=== PATIENT | female | born 1980 | race African-American/Black ===

== ENCOUNTER 2020-07-28 14:51 | Outpatient (REF) | payer OTHER, SELFPAY ==
[2020-07-29 09:46] LABS: CT PCR NOT DETECTED (Not Detect.); NG PCR NOT DETECTED (Not Detect.)
[2020-07-29 13:51] LABS: BV Int Neg Control Negative (Negative); BV Int Pos Control Positive (Positive)
== END 2020-07-28 14:52 | disposition home or self-care (01) ==
LOC: HO.LAB 14:51
PROVIDERS: Visit Provider Advanced Practice Midwife
DX: N93.9 Abnormal uterine and vaginal bleeding, unspecified (principal); R10.2 Pelvic and perineal pain; Z31.9 Encounter for procreative management, unspecified
CPT/HCPCS: 87480; 87491; 87510; 87591; 87660; 99212

== ENCOUNTER 2020-07-30 15:02 | Outpatient (REF) | payer OTHER, SELFPAY ==
--- NOTE | 2020-07-30 15:10 | US_ITS ---
EXAMINATION: PELVIC ULTRASOUND CLINICAL INFORMATION: Abnormal uterine bleeding COMPARISON: Previous pelvic ultrasound September [address] of the abdomen and pelvis May 2019 TECHNIQUE: Transabdominal and transvaginal pelvic ultrasound was performed. Transvaginal exam was performed for better visualization of the uterus and ovaries. FINDINGS: The uterus is anteverted and measures 7.4 x 3.1 x 5.2 cm in dimension. No focal uterine lesion is seen. Endometrial thickness is normal estimated at 0.4 cm. The cervix is normal. The ovaries are normal. The right ovary measures 3.8 x 3.1 x 2.6 cm and the left ovary measures 3 x 2.6 x 2.4 cm. There is no fluid in the pelvis. US/US pelvic complete IMPRESSION: Unremarkable exam.
--- NOTE | 2020-07-30 15:10 | US_ITS ---
EXAMINATION: PELVIC ULTRASOUND CLINICAL INFORMATION: Abnormal uterine bleeding COMPARISON: Previous pelvic ultrasound September [address] of the abdomen and pelvis May 2019 TECHNIQUE: Transabdominal and transvaginal pelvic ultrasound was performed. Transvaginal exam was performed for better visualization of the uterus and ovaries. FINDINGS: The uterus is anteverted and measures 7.4 x 3.1 x 5.2 cm in dimension. No focal uterine lesion is seen. Endometrial thickness is normal estimated at 0.4 cm. The cervix is normal. The ovaries are normal. The right ovary measures 3.8 x 3.1 x 2.6 cm and the left ovary measures 3 x 2.6 x 2.4 cm. There is no fluid in the pelvis. US/US transvaginal IMPRESSION: Unremarkable exam.
[2020-07-30 16:54] LABS: Hematocrit 39.8 % (37-47); Hemoglobin 12.9 g/dl (12.0-16.0); Mean Corpuscular HGB Conc 32.4 g/dl (31.0-35.0); Mean Corpuscular Hemoglobin 30.1 pg (27.0-33.0); Mean Corpuscular Volume 92.8 fL (80-98); Mean Platelet Volume 10.9 fL (9.4-12.3); Platelet Count 239 X10*3/uL (160-400); Red Blood Count 4.29 X10*6/uL (4.20-5.50); Red Cell Distribution Width 12.9 % (11.0-16.0); White Blood Count 4.6 X10*3/uL (4.8-10.8)
[2020-07-30 17:32] LABS: Syphilis Screen Nonreactive (Nonreactive)
[2020-07-31 05:06] LABS: HIV AB/AG Nonreactive (Nonreactive); HIV Num 1 0.13 S/CO (0.00-0.99); ~HepC Num1 0.15 S/CO (0.00-0.79); ~Hepatitis C Antibody Nonreactive (Nonreactive)
[2020-07-31 05:11] LABS: HBsAGNum1 0.34 S/CO (0.00-0.99); Hepatitis B Surface Antigen Negative (Negative)
== END 2020-07-30 15:03 | disposition home or self-care (01) ==
LOC: HO.US 15:02
PROVIDERS: PCP Family Medicine; Visit Provider Advanced Practice Midwife
DX: N93.9 Abnormal uterine and vaginal bleeding, unspecified (principal); R10.2 Pelvic and perineal pain; Z20.2 Contact with and (suspected) exposure to infections with a predominantly sexual mode of transmission
CPT/HCPCS: 36415; 76830; 76856; 85027; 86780; 86803; 87340; 87389

== ENCOUNTER → 2020-08-25 11:30 | Outpatient (BNVA) | payer OTHER, SELFPAY | PROVIDERS: PCP Family Medicine; Referring Provider Family Medicine; Visit Provider Advanced Practice Midwife | DX: Z76.89 Persons encountering health services in other specified circumstances (principal) ==

== ENCOUNTER 2020-09-04 13:52 | Outpatient (REF) | payer OTHER, SELFPAY | END 2020-09-04 13:53 | disposition home or self-care (01) | LOC: HO.LAB 13:52 | PROVIDERS: Visit Provider Hospitalist | DX: Z20.828 Contact with and (suspected) exposure to other viral communicable diseases (principal) | CPT/HCPCS: U0003 ==

== ENCOUNTER 2020-11-17 15:52 | Outpatient (REF) | payer OTHER, SELFPAY | END 2020-11-17 15:53 | disposition home or self-care (01) | LOC: HO.LAB 15:52 | PROVIDERS: Visit Provider Obstetrics & Gynecology | DX: N85.01 Benign endometrial hyperplasia (principal); N85.02 Endometrial intraepithelial neoplasia [EIN] | CPT/HCPCS: 88305 ==

== ENCOUNTER → 2020-11-25 13:40 | Outpatient (BNVA) | payer OTHER, SELFPAY | PROVIDERS: PCP Family Medicine; Visit Provider Obstetrics & Gynecology | DX: N85.02 Endometrial intraepithelial neoplasia [EIN] (principal) | CPT/HCPCS: 99212 ==

== ENCOUNTER 2020-12-08 10:05 | Outpatient (REF) | payer OTHER, SELFPAY ==
[2020-12-08 11:00] LABS: MANUAL DIFF FLAG NO
[2020-12-08 11:13] LABS: Basophils Percent Auto 0.4 % (0-2); Eosinophils Absolute Auto 0.1 X10*3/uL (0.0-0.4); Eosinophils Percent Auto 0.9 % (0-4); Hematocrit 40.6 % (37-47); Hemoglobin 12.9 g/dl (12.0-16.0); Imm Gran Abs Auto 0.01 X10*3/uL (0.00-0.03); Imm Gran Pct Auto 0.2 % (0.0-0.4); Lymphocytes Absolute Auto 2.3 X10*3/uL (1.2-4.9); Lymphocytes Percent Auto 41.2 % (20-40); Mean Corpuscular HGB Conc 31.8 g/dl (31.0-35.0); Mean Corpuscular Hemoglobin 29.8 pg (27.0-33.0); Mean Corpuscular Volume 93.8 fL (80-98); Mean Platelet Volume 10.7 fL (9.4-12.3); Monocytes Absolute Auto 0.4 X10*3/uL (0.1-1.2); Monocytes Percent Auto 6.4 % (2-11); Neutrophils Absolute Auto 2.8 X10*3/uL (2.0-8.3); Neutrophils Percent Auto 50.9 % (45-73); Platelet Count 259 X10*3/uL (160-400); Red Blood Count 4.33 X10*6/uL (4.20-5.50); Red Cell Distribution Width 13.5 % (11.0-16.0); White Blood Count 5.5 X10*3/uL (4.8-10.8)
[2020-12-08 12:07] LABS: Alanine Aminotransferase 18 U/L (0-31); Albumin Level 4.4 g/dL (3.5-5.0); Alkaline Phosphatase 79 U/L (39-117); Anion Gap 15 (12-20); Aspartate Amino Transferase 20 U/L (5-31); Bilirubin Total 0.8 mg/dL (0.0-1.0); Blood Urea Nitrogen 9 mg/dL (9-16); Calcium 8.9 mg/dL (8.4-10.2); Carbon Dioxide 21 mmol/L (22-29); Chloride 107 mmol/L (96-108); Estimated Glomerular Filt Rate > 60; Glucose Fasting 98 mg/dL (60-99); Iron 85 mcg/dL (30-160); Percent Iron Saturation 29 % (15-50); Potassium 4.3 mmol/L (3.3-5.1); Sodium 139 mmol/L (135-145); TSH reflex Free T4 1.38 uIU/mL (0.32-4.0); Total Iron Binding Capacity 296 mcg/dL (228-428); Total Protein 7.2 g/dL (6.5-8.0); Unsaturated Iron Binding 211 ug/dL
== END 2020-12-08 10:06 | disposition home or self-care (01) ==
LOC: HO.WFDLDS 10:05
PROVIDERS: Visit Provider Family Medicine
DX: Z00.00 Encounter for general adult medical examination without abnormal findings (principal); R53.83 Other fatigue
CPT/HCPCS: 36415; 80053; 83540; 84443; 85025

== ENCOUNTER 2021-08-10 13:46 | Outpatient (REF) | payer OTHER, SELFPAY | END 2021-08-10 13:47 | disposition home or self-care (01) | LOC: HO.LAB 13:46 | PROVIDERS: Visit Provider Family Medicine | DX: Z13.89 Encounter for screening for other disorder (principal) ==

== ENCOUNTER 2021-08-11 16:44 | Outpatient (REF) | payer OTHER, SELFPAY ==
--- NOTE | ~2021-08-11 | MM_ITS ---
EXAMINATION: MM SCREENING DIGITAL BREAST TOMOSYNTHESIS, BILATERAL CLINICAL INFORMATION: Screening. Asymptomatic. The lifetime risk of breast cancer based on the Tyrer-Cuzick Model is 18.8%. COMPARISON: Mammography: September 07, 2019 TECHNIQUE: Digital breast tomosynthesis is performed in both the craniocaudal and mediolateral oblique views along with computer-aided detection (CAD). Synthesized 2D images are generated from the tomosynthesis. FINDINGS: There are scattered areas of fibroglandular density (ACR BI-RADS breast composition Category b). There are no significant masses, abnormal calcifications, or other abnormalities. Stable asymmetric density is seen on mediolateral oblique projection right breast inferiorly. MM/MM tomosynthesis screening BI IMPRESSION: There are no significant changes from prior study. ASSESSMENT: BI-RADS 1: Negative RECOMMENDATION: Routine annual mammography screening. This patient's information was entered into a reminder system with a target due date for their next mammogram.
== END 2021-08-11 16:45 | disposition home or self-care (01) ==
LOC: HO.MAMMO 16:44
PROVIDERS: PCP Family Medicine; Visit Provider Family Medicine
DX: Z12.31 Encounter for screening mammogram for malignant neoplasm of breast (principal)
CPT/HCPCS: 77063; 77067

== ENCOUNTER 2021-11-19 15:00 | Outpatient (REF) | payer OTHER, SELFPAY | END 2021-11-19 15:01 | disposition home or self-care (01) | LOC: HO.LNP 15:00 | PROVIDERS: Visit Provider Family Medicine | DX: Z13.89 Encounter for screening for other disorder (principal) ==

== ENCOUNTER 2021-11-20 11:26 | Outpatient (REF) | payer OTHER, SELFPAY ==
[2021-11-20 12:02] LABS: Appearance Urine TURBID; Color Urine YELLOW; Glucose Urine UA NEG (NEG); Leukocyte Esterase Urine NEG (NEG); Nitrite Urine NEG (NEG); PH 5.5 (5.0-8.0); Specific Gravity - Urine >= 1.030 (1.005-1.025); Urine Blood NEG (NEG); Urine Ketones NEG (NEG); Urine Protein NEG (NEG-TRACE)
== END 2021-11-20 11:27 | disposition home or self-care (01) ==
LOC: HO.LNP 11:26
PROVIDERS: Visit Provider Family Medicine
DX: Z00.00 Encounter for general adult medical examination without abnormal findings (principal)
CPT/HCPCS: 81003

== ENCOUNTER 2021-11-30 12:24 | Outpatient (REF) | payer OTHER, SELFPAY ==
[2021-11-30 13:53] LABS: MANUAL DIFF FLAG NO
[2021-11-30 14:02] LABS: Basophils Percent Auto 0.2 % (0-2); Eosinophils Percent Auto 0.6 % (0-4); Hematocrit 41.8 % (37.0-47.0); Hemoglobin 13.8 g/dl (12.0-16.0); Imm Gran Abs Auto 0.03 X10*3/uL (0.00-0.03); Imm Gran Pct Auto 0.6 % (0.0-0.4); Lymphocytes Absolute Auto 0.7 X10*3/uL (1.2-4.9); Lymphocytes Percent Auto 13.7 % (20-40); Mean Corpuscular Hemoglobin 30.2 pg (27.0-33.0); Mean Corpuscular Volume 91.5 fL (80.0-98.0); Mean Platelet Volume 10.8 fL (9.4-12.3); Monocytes Absolute Auto 0.3 X10*3/uL (0.1-1.2); Neutrophils Percent Auto 78.9 % (45-73); Platelet Count 238 X10*3/uL (160-400); Red Blood Count 4.57 X10*6/uL (4.20-5.50); Red Cell Distribution Width 13.4 % (11.0-16.0)
[2021-11-30 14:06] LABS: Appearance Urine CLEAR; Color Urine YELLOW; Glucose Urine UA NEG (NEG); Leukocyte Esterase Urine NEG (NEG); Nitrite Urine NEG (NEG); Specific Gravity - Urine >= 1.030 (1.005-1.025); Urine Blood NEG (NEG); Urine Ketones NEG (NEG); Urine Protein NEG (NEG-TRACE)
[2021-11-30 14:11] LABS: Anion Gap 13 (12-20); Blood Urea Nitrogen 9 mg/dL (9-16); Calcium 9.2 mg/dL (8.4-10.2); Carbon Dioxide 20 mmol/L (22-29); Chloride 107 mmol/L (96-108); Estimated Glomerular Filt Rate > 60; Glucose Random 109 mg/dL (60-115); Potassium 3.8 mmol/L (3.3-5.1); Sodium 136 mmol/L (135-145)
[2021-11-30 14:41] LABS: Syphilis Screen Nonreactive (Nonreactive)
[2021-12-02 07:57] LABS: HBsAGNum1 0.15 S/CO (0.00-0.99); HIV AB/AG Nonreactive (Nonreactive); HIV Num 1 0.05 S/CO (0.00-0.99); Hepatitis B Surface Antigen Negative (Negative)
[2021-12-02 08:42] LABS: HBc Num1 8.82 S/CO (0.00-0.79); ~Hepatitis B Surface Antibody REACTIVE (Nonreactive)
[2021-12-02 10:41] LABS: HBc Num2 9.07 S/CO; HBc Num3 8.69 S/CO; Hepatitis B Core Antibody Reactive (Nonreactive)
[2021-12-03 09:40] LABS: ~HepC Num1 0.16 S/CO (0.00-0.79); ~Hepatitis C Antibody Nonreactive (Nonreactive)
== END 2021-11-30 12:25 | disposition home or self-care (01) ==
LOC: HO.WFDLDS 12:24
PROVIDERS: Visit Provider Family Medicine
DX: Z00.00 Encounter for general adult medical examination without abnormal findings (principal); M25.471 Effusion, right ankle; M25.472 Effusion, left ankle; R60.0 Localized edema; Z11.3 Encounter for screening for infections with a predominantly sexual mode of transmission
CPT/HCPCS: 36415; 80048; 81003; 85025; 86704; 86706; 86780; 86803; 87340; 87389

== ENCOUNTER 2022-02-09 16:04 | Outpatient (REF) | payer OTHER, SELFPAY ==
--- NOTE | ~2022-02-09 | XR_ITS ---
EXAMINATION: LEFT SHOULDER RADIOGRAPH LEFT ELBOW RADIOGRAPH CLINICAL INFORMATION: Pain. COMPARISON: No similar priors. TECHNIQUE: 4 views of the left shoulder. 3 views of the left elbow. FINDINGS: Left shoulder: No acute fractures or malalignment. No significant degenerative osteoarthritis. Normal appearance of the soft tissues. Imaged segments of the left lung are within normal limits. Left elbow: No acute fracture or malalignment. Normal soft tissues. No joint effusion. XR/XR elbow LT 2V IMPRESSION: Normal radiographic examination of the left shoulder and left elbow.
--- NOTE | ~2022-02-09 | XR_ITS ---
EXAMINATION: LEFT SHOULDER RADIOGRAPH LEFT ELBOW RADIOGRAPH CLINICAL INFORMATION: Pain. COMPARISON: No similar priors. TECHNIQUE: 4 views of the left shoulder. 3 views of the left elbow. FINDINGS: Left shoulder: No acute fractures or malalignment. No significant degenerative osteoarthritis. Normal appearance of the soft tissues. Imaged segments of the left lung are within normal limits. Left elbow: No acute fracture or malalignment. Normal soft tissues. No joint effusion. XR/XR shoulder LT min 2V IMPRESSION: Normal radiographic examination of the left shoulder and left elbow.
== END 2022-02-09 16:05 | disposition home or self-care (01) ==
LOC: HO.XRAY 16:04
PROVIDERS: PCP Family Medicine; Visit Provider Family Medicine
DX: M25.512 Pain in left shoulder (principal); M25.522 Pain in left elbow
CPT/HCPCS: 73030; 73070

== ENCOUNTER 2022-03-30 22:15 | Emergency (ER) | payer OTHER, SELFPAY ==
[2022-03-30 22:19] VITALS: BP 146/97; PULSE 111; RESP 18; TEMP 37.8; O2SAT 99; BMI 34.9
[2022-03-30 22:43] LABS: MANUAL DIFF FLAG NO
[2022-03-30 22:44] LABS: Basophils Percent Auto 0.3 % (0-2); Eosinophils Absolute Auto 0.1 X10*3/uL (0.0-0.4); Eosinophils Percent Auto 0.8 % (0-4); Hematocrit 40.4 % (37.0-47.0); Hemoglobin 13.3 g/dl (12.0-16.0); Imm Gran Abs Auto 0.02 X10*3/uL (0.00-0.03); Imm Gran Pct Auto 0.3 % (0.0-0.4); Lymphocytes Absolute Auto 0.4 X10*3/uL (1.2-4.9); Lymphocytes Percent Auto 6.4 % (20-40); Mean Corpuscular HGB Conc 32.9 g/dl (31.0-35.0); Mean Corpuscular Hemoglobin 30.3 pg (27.0-33.0); Mean Platelet Volume 10.1 fL (9.4-12.3); Monocytes Absolute Auto 0.5 X10*3/uL (0.1-1.2); Monocytes Percent Auto 7.3 % (2-11); Neutrophils Absolute Auto 5.2 x10*3/uL (2.0-8.3); Neutrophils Percent Auto 84.9 % (45-73); Platelet Count 228 X10*3/uL (160-400); Red Blood Count 4.39 X10*6/uL (4.20-5.50); Red Cell Distribution Width 13.3 % (11.0-16.0); White Blood Count 6.1 X10*3/uL (4.8-10.8)
[2022-03-30 22:54] LABS: COVID-19 Test Positive (Negative); IDNOW Serial# 55D5AD1C
[2022-03-30 22:59] LABS: Alanine Aminotransferase 23 U/L (0-31); Albumin Level 4.3 g/dL (3.5-5.0); Alkaline Phosphatase 92 U/L (39-117); Anion Gap 10 (12-20); Aspartate Amino Transferase 23 U/L (5-31); Bilirubin Total 0.6 mg/dL (0.0-1.0); Blood Urea Nitrogen 10 mg/dL (9-16); Calcium 8.7 mg/dL (8.4-10.2); Carbon Dioxide 23 mmol/L (22-29); Chloride 109 mmol/L (96-108); Creatinine Clr Calc Pharmacy 81.8; Estimated Glomerular Filt Rate > 60; Glucose Random 104 mg/dL (60-115); Potassium 4.4 mmol/L (3.3-5.1); Sodium 138 mmol/L (135-145); Total Protein 7.3 g/dL (6.5-8.0)
== END 2022-03-31 03:33 | disposition left against medical advice (07) ==
LOC: HO.ED 03-31 03:33
PROVIDERS: Emergency Provider Emergency Medicine; PCP Family Medicine
DX: R50.9 Fever, unspecified (principal); M79.10 Myalgia, unspecified site; R11.10 Vomiting, unspecified; Z20.822 Contact with and (suspected) exposure to COVID-19; Z79.899 Other long term (current) drug therapy
CPT/HCPCS: 36415; 80053; 85025; 87635; 99281; 99283

== ENCOUNTER 2022-05-04 11:11 | Outpatient (REF) | payer OTHER, SELFPAY ==
[2022-05-04 13:00] LABS: HCG Quantitative < 2 mIU/mL; TSH reflex Free T4 1.82 uIU/mL (0.32-4.0)
[2022-05-04 15:08] LABS: CT PCR NOT DETECTED (Not Detect.); NG PCR NOT DETECTED (Not Detect.)
[2022-05-05 07:16] LABS: Syphilis Screen Nonreactive (Nonreactive)
[2022-05-05 07:41] LABS: HBc Num1 7.98 S/CO (0.00-0.79); HBsAGNum1 0.13 S/CO (0.00-0.99); HIV AB/AG Nonreactive (Nonreactive); HIV Num 1 0.06 S/CO (0.00-0.99); Hepatitis B Surface Antigen Negative (Negative); ~HepC Num1 0.15 S/CO (0.00-0.79); ~Hepatitis B Surface Antibody REACTIVE (Nonreactive); ~Hepatitis C Antibody Nonreactive (Nonreactive)
[2022-05-05 08:36] LABS: HBc Num2 7.43 S/CO; HBc Num3 7.38 S/CO; Hepatitis B Core Antibody Reactive (Nonreactive)
[2022-05-07 03:03] LABS: Hepatitis B Core Antibody IgM NON-REACTIVE (NON-REACTIVE)
[2022-05-08 10:16] LABS: HPV mRNA E6/E7 rflx Not Detected (Not Detected)
== END 2022-05-04 11:12 | disposition home or self-care (01) ==
LOC: HO.LAB 11:11
PROVIDERS: PCP Family Medicine; Visit Provider Obstetrics & Gynecology
DX: Z12.4 Encounter for screening for malignant neoplasm of cervix (principal); Z11.51 Encounter for screening for human papillomavirus (HPV); Z11.3 Encounter for screening for infections with a predominantly sexual mode of transmission; Z11.4 Encounter for screening for human immunodeficiency virus [HIV]; N85.02 Endometrial intraepithelial neoplasia [EIN]; N93.9 Abnormal uterine and vaginal bleeding, unspecified
CPT/HCPCS: 36415; 58100; 81025; 84443; 84702; 86704; 86705; 86706; 86780; 86803; 87340; 87389; 87491; 87591; 87624; 88142; 88305; 99212

== ENCOUNTER 2022-06-25 14:53 | Outpatient (REF) | payer OTHER, SELFPAY ==
--- NOTE | ~2022-06-25 | US_ITS ---
EXAMINATION: US PELVIS CLINICAL INFORMATION: Abnormal bleeding COMPARISON: Previous pelvic ultrasound most recent July 2020 TECHNIQUE: Ultrasound of the pelvis is performed using both transabdominal and transvaginal transducers along with Doppler. Transvaginal imaging is performed due to inadequate visualization transabdominally. FINDINGS: The uterus is anteverted and measures 7.4 x 3.6 x 5.3 cm in dimension. There is a small cyst in the left upper uterine body near the endometrium measuring 0.8 cm. No other focal uterine lesion is seen. Endometrial thickness is normal measuring 0.6 cm. There are nabothian cysts in the cervix. The ovaries are normal. The right ovary measures 3.8 x 2.7 x 3.1 cm. The left ovary measures 3.2 x 3.3 x 3 cm. There is no fluid in the pelvis. US/US pelvic and transvaginal IMPRESSION: Small 8 mm cyst in the left upper uterine body near the endometrium. Otherwise unremarkable exam.
== END 2022-06-25 14:54 | disposition home or self-care (01) ==
LOC: HO.HMGCX 14:53
PROVIDERS: PCP Family Medicine; Visit Provider Obstetrics & Gynecology
DX: N93.9 Abnormal uterine and vaginal bleeding, unspecified (principal)
CPT/HCPCS: 76830; 76856

== ENCOUNTER → 2022-06-29 15:37 | Outpatient (BNVA) | payer OTHER, SELFPAY | PROVIDERS: PCP Family Medicine; Visit Provider Obstetrics & Gynecology | DX: R93.89 Abnormal findings on diagnostic imaging of other specified body structures (principal) | CPT/HCPCS: 99212 ==

== ENCOUNTER 2022-07-29 01:15 | Emergency (ER) | payer OTHER, SELFPAY ==
[2022-07-29 01:23] VITALS: BP 149/99; PULSE 94; RESP 16; TEMP 36.6; O2SAT 98; BMI 34.9
[2022-07-29 01:50] LABS: Basophils Percent Auto 0.6 % (0-2); Eosinophils Absolute Auto 0.1 X10*3/uL (0.0-0.4); Eosinophils Percent Auto 1.3 % (0-4); Hematocrit 42.1 % (37.0-47.0); Hemoglobin 14.1 g/dl (12.0-16.0); Imm Gran Abs Auto 0.02 X10*3/uL (0.00-0.03); Imm Gran Pct Auto 0.4 % (0.0-0.4); Lymphocytes Percent Auto 37.3 % (20-40); MANUAL DIFF FLAG NO; Mean Corpuscular HGB Conc 33.5 g/dl (31.0-35.0); Mean Corpuscular Hemoglobin 30.4 pg (27.0-33.0); Mean Corpuscular Volume 90.7 fL (80.0-98.0); Mean Platelet Volume 10.3 fL (9.4-12.3); Monocytes Absolute Auto 0.3 X10*3/uL (0.1-1.2); Monocytes Percent Auto 5.7 % (2-11); Neutrophils Percent Auto 54.7 % (45-73); Platelet Count 285 X10*3/uL (160-400); Red Blood Count 4.64 X10*6/uL (4.20-5.50); White Blood Count 5.4 X10*3/uL (4.8-10.8)
[2022-07-29 02:16] LABS: Alanine Aminotransferase 22 U/L (0-31); Albumin Level 4.4 g/dL (3.5-5.0); Alkaline Phosphatase 111 U/L (39-117); Anion Gap 14 (12-20); Aspartate Amino Transferase 26 U/L (5-31); Bilirubin Total 0.5 mg/dL (0.0-1.0); Blood Urea Nitrogen 9 mg/dL (9-16); Calcium 9.1 mg/dL (8.4-10.2); Carbon Dioxide 21 mmol/L (22-29); Chloride 111 mmol/L (96-108); Creatinine Clr Calc Pharmacy 72.7; Estimated Glomerular Filt Rate > 60; Glucose Random 114 mg/dL (60-115); Potassium 4.2 mmol/L (3.3-5.1); Sodium 142 mmol/L (135-145); Total Protein 7.7 g/dL (6.5-8.0)
[2022-07-29 02:50] VITALS: BP 128/80; PULSE 64; RESP 24; TEMP 37.1
--- NOTE | 2022-07-29 03:36 | ED.FEMALEGU ---
HPI - Female Genitourinary General Chief complaint: Vaginal Bleeding Stated complaint: urogen female Time Seen by Provider: 07/29/22 02:37 Source: patient Mode of arrival: ambulatory History of Present Illness HPI Narrative: 42-year-old female presents with 3 weeks of intermittent vaginal bleeding that ranges between red, round, ?black? and she reports using 4-6 pad/temp onset throughout a day and has had associated lower back pain without urinary symptoms denies any fever, chills, dizziness, shortness of breath, heart palpitations. Patient is followed by Dr. Stock and she states he has recommended a D&C but she is somewhat concerned as she wishes to have children in the future. Related Data Home Medications Medication Instructions Recorded Confirmed albuterol sulfate 2.5 mg/3 mL mg inhalation 07/28/20 (0.083 %) solution for nebulization albuterol sulfate 90 mcg/actuation inhalation 07/28/20 aerosol inhaler levetiracetam 750 mg tablet 750 mg PO BID 07/28/20 Previous Rx's Medication Instructions Recorded ibuprofen 800 mg tablet 800 mg PO Q8H PRN pain 14 days #42 02/03/22 tabs amlodipine 10 mg tablet 10 mg PO DAILY 90 days #90 tabs 04/28/22 ketorolac 10 mg tablet 10 mg PO Q6H PRN pain 5 days #20 07/29/22 tabs Allergies Allergy/AdvReac Type Severity Reaction Status Date / Time Sulfa (Sulfonamide Allergy Intermediate HIVES Verified 07/29/22 01:28 Antibiotics) [SULFA (SULFONAMIDE ANTIBIOTICS)] sulfamethoxazole Allergy Intermediate HIVES, Verified 07/29/22 01:28 [From BACTRIM] FEVER trimethoprim [From BACTRIM] Allergy Intermediate HIVES, Verified 07/29/22 01:28 FEVER penicillin V Allergy Unknown Unknown Verified 07/29/22 01:28 lisinopril AdvReac cough Verified 07/29/22 01:28 Sulfamethoxazole Allergy Unknown Unknown Uncoded 02/03/22 16:38 Review of Systems Review of Systems: Pertinent positives and negatives as stated in HPI 10 point review of systems is otherwise negative. PMFSH Past Medical History Source: nursing notes reviewed Medical History Asthma Endometrial intraepithelial neoplasia (EIN) HTN (hypertension) Irritable bowel syndrome with constipation Seizure Vertigo Surgical History No history of previous surgery Social History Social History Housing: Apartment Alcohol intake: never Patient Tobacco Use Status: Never used Tobacco e-Cigarette/Vaping Use: Never Used Advance Directives: No service: No Current occupational status: disabled Current occupational exposures/hazards: No Gender identity: Female Cognitive needs: No Hearing needs: No Vision needs: No Physical Exam Vital Signs: Vital Signs: Last Vital Signs Temp 98.8 F 07/29/22 02:50 Pulse 64 07/29/22 02:50 Resp 24 H 07/29/22 02:50 BP 128/80 07/29/22 02:50 Pulse Ox 98 07/29/22 01:23 O2 Del Method 07/29/22 02:50 BMI result Body Mass Index 34.9 VITAL SIGNS: Reviewed. GENERAL: Well developed, well nourished, in no acute distress. HEAD: Normocephalic/atraumatic EYES: PERRLA, EOMI EARS: Ext canals without abnormality OROPHARYNX: no oral lesions noted, posterior pharynx clear LUNGS: Normal breath sounds. No adventitious sounds or accessory muscle use. SpO2<98> CARDIOVASCULAR: Regular rate and rhythm without noted murmurs ABDOMEN: Soft, non-tender, non-distended with bowel sounds. MUSCULOSKELETAL: No tenderness, deformities, or effusions noted on gross inspection. EXTREMITIES: No cyanosis, clubbing or edema. SKIN: Inspection of the skin reveals no rashes NEUROLOGIC: Alert and oriented x 4. Strength and sensation to light touch were grossly intact x 4. Course Course Course Narrative: 42-year-old female with history and clinical presentation after review of investigations consistent with DUB. There is no evidence of acute anemia and patient will be provided with combination analgesics. On re-evaluation patient is feeling much improved. She is discharged home in stable condition with referral to see Gynecology. MDM - Female Genitourinary Lab Data Result diagrams: 07/29/22 01:41 07/29/22 01:41 Labs: Lab Results 07/29/22 07/29/22 07/29/22 Range/Units 01:41 01:41 03:44 WBC 5.4 (4.8-10.8) X10*3/uL RBC 4.64 (4.20-5.50) X10*6/uL Hgb 14.1 (12.0-16.0) g/dl Hct 42.1 (37.0-47.0) % MCV 90.7 (80.0-98.0) fL MCH 30.4 (27.0-33.0) pg MCHC 33.5 (31.0-35.0) g/dl RDW 13.0 (11.0-16.0) % Plt Count 285 (160-400) X10*3/uL MPV 10.3 (9.4-12.3) fL Immature Gran % (Auto) 0.4 (0.0-0.4) % Neut % (Auto) 54.7 (45-73) % Lymph % (Auto) 37.3 (20-40) % [place] % (Auto) 5.7 (2-11) % Eos % (Auto) 1.3 (0-4) % Baso % (Auto) 0.6 (0-2) % Lymph # (Auto) 2.0 (1.2-4.9) X10*3/uL [place] # (Auto) 0.3 (0.1-1.2) X10*3/uL Eos # (Auto) 0.1 (0.0-0.4) X10*3/uL Baso # (Auto) 0.0 (0.0-0.2) X10*3/uL Abs Immat Gran (auto) 0.02 (0.00-0.03) X10*3/uL Absolute Neuts (auto) 3.0 (2.0-8.3) x10*3/uL Absolute Nucleated RBC 0.000 (0.0-0.012) X10*3/uL Nucleated RBC % (auto) 0.0 (0.0-0.2) /100WBC Sodium 142 (135-145) mmol/L Potassium 4.2 (3.3-5.1) mmol/L Chloride 111 H (96-108) mmol/L Carbon Dioxide 21 L (22-29) mmol/L Anion Gap 14 (12-20) BUN 9 (9-16) mg/dL Creatinine 0.98 (0.5-1.4) mg/dL Estim Creat Clear Calc 72.7 Estimated GFR > 60 Random Glucose 114 (60-115) mg/dL Calcium 9.1 (8.4-10.2) mg/dL Total Bilirubin 0.5 (0.0-1.0) mg/dL AST 26 (5-31) U/L ALT 22 (0-31) U/L Alkaline Phosphatase 111 (39-117) U/L Total Protein 7.7 (6.5-8.0) g/dL Albumin 4.4 (3.5-5.0) g/dL Urine Test NEGATIVE (NEGATIVE) Discharge Plan Discharge Clinical Impression: DUB (dysfunctional uterine bleeding), Cyst of uterus Patient Disposition: Home, Self-Care Instructions: Dysfunctional Uterine Bleeding (ED) Additional Instructions: 1. Resume all home medications as prescribed. 2. Tylenol 1000 mg, orally, every 6 hours as needed for pain control. Do not exceed 4000 mg within 24 hours. 3. Recommend heating pad apply to area of pain for additional symptom relief. 4. You have been provided with a referral to follow-up with Dr. Stock and should call the office in the morning. Return to the ER for any worsening symptoms. Prescriptions: New ketorolac 10 mg tablet 10 mg PO Q6H PRN (Reason: pain) 5 Days Qty: 20 0RF Rx Instructions: 1. Patient received Toradol in the emergency room. 2. Please instruct patient to stop all other NSAIDs. No Action amlodipine 10 mg tablet 10 mg PO DAILY 90 Days Qty: 90 4RF ibuprofen 800 mg tablet 800 mg PO Q8H PRN (Reason: pain) 14 Days Qty: 42 0RF levetiracetam 750 mg tablet 750 mg PO BID albuterol sulfate 90 mcg/actuation HFA aerosol inhaler inhalation albuterol sulfate 2.5 mg /3 mL (0.083 %) solution for nebulization inhalation Referrals: Oral Aguilar MD [Primary Care Provider] - Bony Stock MD [Physician] - (42F with 8mm uterine cyst and DUB like symptoms, has seen you before and you recommend D-n-C and seems ready to consider. Will have her call the office in the morning.)
[2022-07-29 03:49] LABS: UPreg QC Valid YES; Urine Pregnancy NEGATIVE (NEGATIVE)
[2022-07-29] MEDS: Acetaminophen 325 MG TABLET 975 MG PO (03:58)
[2022-07-29 04:06] LABS: HCG Quantitative < 2 mIU/mL
== END 2022-07-29 04:15 | disposition home or self-care (01) ==
PROVIDERS: Emergency Provider Student in an Organized Health Care Education/Training Program; PCP Family Medicine
DX: N93.8 Other specified abnormal uterine and vaginal bleeding (principal); N85.8 Other specified noninflammatory disorders of uterus; Z79.899 Other long term (current) drug therapy
CPT/HCPCS: 36415; 80053; 81025; 84702; 85025; 99283

== ENCOUNTER 2022-10-05 08:12 | Emergency (ER) | payer OTHER, SELFPAY ==
--- NOTE | ~2022-10-05 | XR_ITS ---
EXAMINATION: XR CHEST CLINICAL INFORMATION: Cough. COMPARISON: 04/11/2019 chest radiographs. TECHNIQUE: Frontal view of the chest was obtained. FINDINGS: No significant abnormality is noted involving the heart, lungs, mediastinum, bony thorax or soft tissues. XR/XR chest 1V IMPRESSION: No acute cardiopulmonary process.
[2022-10-05 08:20] VITALS: BP 151/78; PULSE 97; RESP 24; TEMP 37.4; O2SAT 100; BMI 34.0
--- NOTE | 2022-10-05 08:26 | ED.ASTHMA ---
HPI - Asthma General Chief Complaint: Dyspnea Stated Complaint: Difficulty breathing/Cough Time Seen by Provider: 10/05/22 08:23 Source: patient Mode of arrival: ambulatory Limitations: no limitations History of Present Illness HPI Narrative: 42 yo female hx of HTN, seizures, asthma no prior intubations cannot remember the last time she was on prednisone or hospitalized had a cold about 2 weeks ago and it resolved. was in her car yesterday and thinks the weather started to trigger her asthma then she had coughing. She woke up at 3am with a dry persistent cough and couldn't catch her breath. She then had foamy mucous and feels short of breath. She denies chest pain or fevers. She si not a smoker MD complaint: asthma attack , shortness of breath and wheezing Onset (ago): day(s) (yesterday) Severity: moderate Context: recent URI and other (weather changes) Associated symptoms: productive cough Asthma History: childhood onset Treatments Prior to Arrival: inhaled bronchodilator Related Data Home Medications Medication Instructions Recorded Confirmed albuterol sulfate 2.5 mg/3 mL mg inhalation 07/28/20 (0.083 %) solution for nebulization albuterol sulfate 90 mcg/actuation inhalation 07/28/20 aerosol inhaler levetiracetam 750 mg tablet 750 mg PO BID 07/28/20 Previous Rx's Medication Instructions Recorded ibuprofen 800 mg tablet 800 mg PO Q8H PRN pain 14 days #42 02/03/22 tabs amlodipine 10 mg tablet 10 mg PO DAILY 90 days #90 tabs 04/28/22 ketorolac 10 mg tablet 10 mg PO Q6H PRN pain 5 days #20 07/29/22 tabs calcium carbonate 600 mg calcium 600 mg PO DAILY #10 tabs 10/05/22 (1,500 mg) tablet (Calcium) doxycycline hyclate 100 mg tablet 100 mg PO BID 7 days #14 tabs 10/05/22 prednisone 20 mg tablet 40 mg PO DAILY 5 days #10 tabs 10/05/22 Allergies Allergy/AdvReac Type Severity Reaction Status Date / Time Sulfa (Sulfonamide Allergy Intermediate HIVES Verified 07/29/22 01:28 Antibiotics) [SULFA (SULFONAMIDE ANTIBIOTICS)] sulfamethoxazole Allergy Intermediate HIVES, Verified 07/29/22 01:28 [From BACTRIM] FEVER trimethoprim [From BACTRIM] Allergy Intermediate HIVES, Verified 07/29/22 01:28 FEVER penicillin V Allergy Unknown Unknown Verified 07/29/22 01:28 lisinopril AdvReac cough Verified 07/29/22 01:28 Sulfamethoxazole Allergy Unknown Unknown Uncoded 02/03/22 16:38 Review of Systems Review of Systems: Constitutional : No Fever, No Chills ENT/Mouth : No Hoarseness, No sore throat, No Rhinorrhea Eyes: No Redness, No Discharge, No Vision Changes Cardiovascular : No Chest Pain, positive SOB, positive Dyspnea on Exertion, No Edema Respiratory : positive Cough, pos Sputum, positive Wheezing, Gastrointestinal : No Nausea, No Vomiting, No Diarrhea, No abdominal Pain Genitourinary : No Dysuria, No Hematuria Musculoskeletal : No joint pain, No Myalgias Skin : No rash Neuro : No Weakness, No Numbness, No Headache Psych : No anxiety, depression Heme/Lymph: No Bruising, No Bleeding Endocrine : No Polyuria, No Polydipsia All other systems reviewed and are negative FOR[facility]LY [facility] Past Medical History Attestation statement: The following information was validated with the patient. Medical History Asthma Endometrial intraepithelial neoplasia (EIN) HTN (hypertension) Irritable bowel syndrome with constipation Seizure Vertigo Surgical History No history of previous surgery Social History Social History Housing: Apartment Alcohol intake: never Patient Tobacco Use Status: Never used Tobacco e-Cigarette/Vaping Use: Never Used service: No Current occupational status: disabled Current occupational exposures/hazards: No Gender identity: Female Cognitive needs: No Hearing needs: No Vision needs: No Physical Exam Vital Signs: Vital Signs: Last Vital Signs Temp 99.4 F 10/05/22 10:03 Pulse 71 10/05/22 10:03 Resp 15 10/05/22 10:03 BP 141/90 H 10/05/22 10:03 Pulse Ox 96 10/05/22 10:03 O2 Del Method 10/05/22 10:03 BMI result Body Mass Index 34.0 Appearance: Alert. Oriented X3. No acute distress. anxious Eyes: Pupils equal, round and reactive to light. ENT: Pharynx normal. Neck: Normal inspection. Neck supple. CVS: Normal heart rate and rhythm. Pulses normal. Respiratory: No respiratory distress. Breath sounds coarse and faint exp wheezes noted. Abdomen: Soft and nontender. Skin: Skin warm and dry. Normal skin color. Normal skin turgor. Extremities: No lower extremity edema. No calf ttp Neuro: Oriented X 3. No motor deficit. No sensory deficit. Course Course Course Narrative: patient feels better stable for DC, no hypoxia clear lungs Medications Administered Discontinued Medications Generic Name Dose Route Start Last Admin Trade Name Pranay PRN Reason Stop Dose Admin Acetaminophen 650 mg 10/05/22 08:25 10/05/22 08:39 Acetaminophen 325 Mg Tablet PO 10/05/22 08:26 650 mg ONCE ONE Administration Albuterol Sulfate 2.5 mg 10/05/22 08:25 10/05/22 09:01 Albuterol Sulfate (0.083%) 2.5 Mg/3 Ml Vial.Neb INHALE 10/05/22 08:26 2.5 mg ONCE ONE Administration Lactated Ringer's 1,000 mls @ 999 mls/hr 10/05/22 09:15 10/05/22 09:13 Lr IV 10/05/22 10:15 999 mls/hr .Q1H1M ROXANNE Administration Methylprednisolone Sodium Succinate 60 mg 10/05/22 08:25 10/05/22 08:39 Methylprednisolone Sod Succ 125 Mg/2 Ml Vial IVPUSH 10/05/22 08:26 60 mg ONCE ONE Administration Potassium Chloride 40 meq 10/05/22 09:02 10/05/22 09:12 Potassium Chloride Packet 20 Meq Packet PO 10/05/22 09:03 40 meq ONCE ONE Administration Medical Decision Making Medical Decision Making [facility] Narrative: 42 yo female with PMH of 42 yo female hx of HTN, seizures, asthma here with c/o recent URIs that improved now with triggered asthma attack that she blames the weather on - at this time will need IV steroids, labs, CXR for pneumonia, viral swab and albuterol neb. PO tylenol as well. Differential Diagnosis Differential Diagnoses: The differential diagnosis associated with the presentation includes asthma exacerbation, viral syndrome, pneumonia Lab Data [facility] Lab Attestation statement: I reviewed the patient's lab results. K 3.2 repleted here, calcium low - LR ordered will send home with PO medications 10/05/22 08:35 10/05/22 08:35 Labs: Lab Results 10/05/22 10/05/22 10/05/22 Range/Units 08:31 08:31 08:35 WBC 5.9 (4.8-10.8) X10*3/uL RBC 4.40 (4.20-5.50) X10*6/uL Hgb 13.3 (12.0-16.0) g/dl Hct 39.7 (37.0-47.0) % MCV 90.2 (80.0-98.0) fL MCH 30.2 (27.0-33.0) pg MCHC 33.5 (31.0-35.0) g/dl RDW 13.5 (11.0-16.0) % Plt Count 248 (160-400) X10*3/uL MPV 9.7 (9.4-12.3) fL Immature Gran % (Auto) 0.3 (0.0-0.4) % Neut % (Auto) 63.8 (45-73) % Lymph % (Auto) 26.3 (20-40) % [place] % (Auto) 5.6 (2-11) % Eos % (Auto) 3.5 (0-4) % Baso % (Auto) 0.5 (0-2) % Lymph # (Auto) 1.6 (1.2-4.9) X10*3/uL [place] # (Auto) 0.3 (0.1-1.2) X10*3/uL Eos # (Auto) 0.2 (0.0-0.4) X10*3/uL Baso # (Auto) 0.0 (0.0-0.2) X10*3/uL Abs Immat Gran (auto) 0.02 (0.00-0.03) X10*3/uL Absolute Neuts (auto) 3.8 (2.0-8.3) x10*3/uL Absolute Nucleated RBC 0.000 (0.0-0.012) X10*3/uL Nucleated RBC % (auto) 0.0 (0.0-0.2) /100WBC Sodium (135-145) mmol/L Potassium (3.3-5.1) mmol/L Chloride (96-108) mmol/L Carbon Dioxide (22-29) mmol/L Anion Gap (12-20) BUN (9-16) mg/dL Creatinine (0.5-1.4) mg/dL Estim Creat Clear Calc Estimated GFR Random Glucose (60-115) mg/dL Calcium (8.4-10.2) mg/dL COVID-19 (ALEX) Negative (Negative) COVID-19 Clin Com See Note Influenza Type A (NADJA) Negative (Negative) Influenza Type B (NADJA) Negative (Negative) Influenza A & B Note See Note 10/05/22 Range/Units 08:35 WBC (4.8-10.8) X10*3/uL RBC (4.20-5.50) X10*6/uL Hgb (12.0-16.0) g/dl Hct (37.0-47.0) % MCV (80.0-98.0) fL MCH (27.0-33.0) pg MCHC (31.0-35.0) g/dl RDW (11.0-16.0) % Plt Count (160-400) X10*3/uL MPV (9.4-12.3) fL Immature Gran % (Auto) (0.0-0.4) % Neut % (Auto) (45-73) % Lymph % (Auto) (20-40) % [place] % (Auto) (2-11) % Eos % (Auto) (0-4) % Baso % (Auto) (0-2) % Lymph # (Auto) (1.2-4.9) X10*3/uL [place] # (Auto) (0.1-1.2) X10*3/uL Eos # (Auto) (0.0-0.4) X10*3/uL Baso # (Auto) (0.0-0.2) X10*3/uL Abs Immat Gran (auto) (0.00-0.03) X10*3/uL Absolute Neuts (auto) (2.0-8.3) x10*3/uL Absolute Nucleated RBC (0.0-0.012) X10*3/uL Nucleated RBC % (auto) (0.0-0.2) /100WBC Sodium 141 (135-145) mmol/L Potassium 3.2 L D (3.3-5.1) mmol/L Chloride 114 H (96-108) mmol/L Carbon Dioxide 18 L (22-29) mmol/L Anion Gap 12 (12-20) BUN 9 (9-16) mg/dL Creatinine 0.77 (0.5-1.4) mg/dL Estim Creat Clear Calc 91.2 Estimated GFR > 60 Random Glucose 109 (60-115) mg/dL Calcium 7.8 L D (8.4-10.2) mg/dL COVID-19 (ALEX) (Negative) COVID-19 Clin Com Influenza Type A (NADJA) (Negative) Influenza Type B (NADJA) (Negative) Influenza A & B Note Independent Interpretation I performed an independent interpretation of an: Plain X-Ray (bronchial wall thickening) Independent Historian Clinical information obtained from an independent historian. History obtained from or confirmed by: Spouse Prescription Management I considered prescription management with: Antibiotic and Other (calcium, prednisone) Discharge Plan Discharge Clinical Impression: Bronchitis, Acute hypokalemia, Hypocalcemia Asthma exacerbation Qualifiers: Asthma severity: moderate Asthma persistence: persistent Qualified Code(s): J45.41 - Moderate persistent asthma with (acute) exacerbation Patient Disposition: Home, Self-Care Instructions: Asthma (ED), Acute Bronchitis (ED) Additional Instructions: return to ED for any worsening symptoms or concerns please return for fevers, increasing shortness of breath, chest pain, no response to treatments. take all medications as prescribed, continue to use your nebulizer. EAT A BANANA A DAY WELL Prescriptions: New prednisone 20 mg tablet 40 mg PO DAILY 5 Days Qty: 10 0RF doxycycline hyclate 100 mg tablet 100 mg PO BID 7 Days Qty: 14 0RF calcium carbonate [Calcium 600] 600 mg calcium (1,500 mg) tablet 600 mg PO DAILY Qty: 10 0RF No Action amlodipine 10 mg tablet 10 mg PO DAILY 90 Days Qty: 90 4RF ketorolac 10 mg tablet 10 mg PO Q6H PRN (Reason: pain) 5 Days Qty: 20 0RF Rx Instructions: 1. Patient received Toradol in the emergency room. 2. Please instruct patient to stop all other NSAIDs. ibuprofen 800 mg tablet 800 mg PO Q8H PRN (Reason: pain) 14 Days Qty: 42 0RF levetiracetam 750 mg tablet 750 mg PO BID albuterol sulfate 90 mcg/actuation HFA aerosol inhaler inhalation albuterol sulfate 2.5 mg /3 mL (0.083 %) solution for nebulization inhalation Referrals: Oral Aguilar MD [Primary Care Provider] - 5 days (repeat potassium and calcium levels) Stand Alone Forms: Work/School Release Interventions: ED Discharge Assessment Last Done: 10/05/22 10:17 Discharge Date/Time: 10/05/22 10:17
[2022-10-05 08:28] VITALS: BP 151/78; PULSE 102; RESP 15; TEMP 37.4; O2SAT 98
[2022-10-05 08:39] LABS: MANUAL DIFF FLAG NO
[2022-10-05] MEDS: Acetaminophen 325 MG TABLET 650 MG PO (08:39)
[2022-10-05] MEDS: methylPREDNISolone Sod Succ 125 MG/2 ML VIAL 60 MG IVPUSH (08:39)
[2022-10-05 08:41] LABS: Basophils Percent Auto 0.5 % (0-2); Eosinophils Absolute Auto 0.2 X10*3/uL (0.0-0.4); Eosinophils Percent Auto 3.5 % (0-4); Hematocrit 39.7 % (37.0-47.0); Hemoglobin 13.3 g/dl (12.0-16.0); Imm Gran Abs Auto 0.02 X10*3/uL (0.00-0.03); Imm Gran Pct Auto 0.3 % (0.0-0.4); Lymphocytes Absolute Auto 1.6 X10*3/uL (1.2-4.9); Lymphocytes Percent Auto 26.3 % (20-40); Mean Corpuscular HGB Conc 33.5 g/dl (31.0-35.0); Mean Corpuscular Hemoglobin 30.2 pg (27.0-33.0); Mean Corpuscular Volume 90.2 fL (80.0-98.0); Mean Platelet Volume 9.7 fL (9.4-12.3); Monocytes Absolute Auto 0.3 X10*3/uL (0.1-1.2); Monocytes Percent Auto 5.6 % (2-11); Neutrophils Absolute Auto 3.8 x10*3/uL (2.0-8.3); Neutrophils Percent Auto 63.8 % (45-73); Platelet Count 248 X10*3/uL (160-400); Red Cell Distribution Width 13.5 % (11.0-16.0); White Blood Count 5.9 X10*3/uL (4.8-10.8)
[2022-10-05 08:53] LABS: COVID-19 Test Negative (Negative); IDNOW Serial# 16C4AD1C
[2022-10-05 08:55] LABS: IDNOW Serial# BCCEAD1C; Influenza A Negative (Negative); Influenza B2 Negative (Negative)
[2022-10-05 09:00] LABS: Anion Gap 12 (12-20); Blood Urea Nitrogen 9 mg/dL (9-16); Calcium 7.8 mg/dL (8.4-10.2); Carbon Dioxide 18 mmol/L (22-29); Chloride 114 mmol/L (96-108); Creatinine Clr Calc Pharmacy 91.2; Estimated Glomerular Filt Rate > 60; Glucose Random 109 mg/dL (60-115); Potassium 3.2 mmol/L (3.3-5.1); Sodium 141 mmol/L (135-145)
[2022-10-05] MEDS: Albuterol Sulfate (0.083%) 2.5 MG/3 ML VIAL.NEB INHALE (09:01)
[2022-10-05 09:02] VITALS: PULSE 108; RESP 18; O2SAT 98
[2022-10-05] MEDS: Potassium Chloride Packet 20 MEQ PACKET 40 MEQ PO (09:12)
[2022-10-05] MEDS: Lactated Ringers 1,000 ML 999 ML IV (09:13)
[2022-10-05 09:52] VITALS: BP 108/49; PULSE 69; RESP 18; TEMP 37.2; O2SAT 97
[2022-10-05 10:03] VITALS: BP 141/90; PULSE 71; RESP 15; TEMP 37.4; O2SAT 96
== END 2022-10-05 10:17 | disposition home or self-care (01) ==
PROVIDERS: Emergency Provider Emergency Medicine; PCP Family Medicine
DX: J20.9 Acute bronchitis, unspecified (principal); J45.41 Moderate persistent asthma with (acute) exacerbation; E83.51 Hypocalcemia; E87.6 Hypokalemia; R06.02 Shortness of breath; R05.9 Cough, unspecified; Z20.822 Contact with and (suspected) exposure to COVID-19; Z20.828 Contact with and (suspected) exposure to other viral communicable diseases; Z79.899 Other long term (current) drug therapy
CPT/HCPCS: 36415; 71045; 80048; 85025; 87502; 87635; 94640; 96374; 99284; 99285; J2930

== ENCOUNTER 2022-11-30 09:33 | Outpatient (REF) | payer OTHER, SELFPAY ==
[2022-11-30 11:55] LABS: Appearance Urine Clear; Color Urine Yellow; Glucose Urine UA Negative (Negative); Leukocyte Esterase Urine Negative (Negative); Nitrite Urine Negative (Negative); PH 5.5 (5.0-9.0); UMIC TRIGGER UA YES; Urine Blood Large (3+) (Negative); Urine Ketones Negative (Negative); Urine Protein Negative (Neg-Trace)
[2022-11-30 12:05] LABS: Bacteria Urine None Seen (None Seen); Hyaline Casts Urine 0-2 /LPF (0-2); Squamous Epithelial Cell Urine 0-2 /HPF (0-2); WBC Urine 0-5 /HPF (0-5)
[2022-11-30 12:30] LABS: Alanine Aminotransferase 18 U/L (0-31); Alkaline Phosphatase 97 U/L (39-117); Anion Gap 12 (12-20); Aspartate Amino Transferase 21 U/L (5-31); Bilirubin Total 0.6 mg/dL (0.0-1.0); Blood Urea Nitrogen 10 mg/dL (9-16); Calcium 8.7 mg/dL (8.4-10.2); Carbon Dioxide 22 mmol/L (22-29); Chloride 110 mmol/L (96-108); Cholesterol 198 mg/dL; Estimated Glomerular Filt Rate > 60; Glucose Fasting 104 mg/dL (60-99); HDL Cholesterol 72 mg/dL; LDL Cholesterol Calculated 116 mg/dl; Potassium 4.2 mmol/L (3.3-5.1); Sodium 140 mmol/L (135-145); Total Protein 6.5 g/dL (6.5-8.0); Triglycerides 50 mg/dL
[2022-11-30 12:41] LABS: Creatinine Urine 111.68 mg/dL; Microalbum/Creatinine Ratio Ur 12.5 ug/mg cr
== END 2022-11-30 09:34 | disposition home or self-care (01) ==
LOC: HO.WFDLDS 09:33
PROVIDERS: Visit Provider Family Medicine
DX: Z00.00 Encounter for general adult medical examination without abnormal findings (principal); I10 Essential (primary) hypertension
CPT/HCPCS: 36415; 80053; 80061; 81001; 82043; 84443

== ENCOUNTER → 2023-01-04 15:06 | Outpatient (BNVA) | payer OTHER, SELFPAY | PROVIDERS: PCP Family Medicine; Visit Provider Physician Assistant ==

== ENCOUNTER 2023-01-12 15:31 | Outpatient (REF) | payer OTHER, SELFPAY ==
--- NOTE | ~2023-01-12 | US_ITS ---
EXAMINATION: US PELVIS CLINICAL INFORMATION: Follow-up uterine body cyst; the last menstrual period was 6 days prior. COMPARISON: Pelvic ultrasound dated 06/25/2022. TECHNIQUE: Ultrasound of the pelvis is performed using both transabdominal and transvaginal transducers along with Doppler. Transvaginal imaging is performed due to inadequate visualization transabdominally. FINDINGS: Uterus: The uterus is anteverted and anteflexed. The uterus measures 6.9 x 3.4 x 4.7 cm. Nabothian cysts are seen within the cervix. The double wall endometrial thickness is 0.6 mm. The uterus is smooth in contour and has normal myometrial echogenicity. No visible fibroid. Adnexa: Both ovaries are visualized. There is normal color flow to the adnexa. There is no ovarian torsion. There is no pelvic ascites or fluid collection. Right ovary measures 3.5 x 2.7 x 2.8 cm, volume 13.8 mL. Left ovary measures 3.1 x 2.9 x 2.5 cm, volume 11.8 mL. US/US pelvic and transvaginal IMPRESSION: Nabothian cysts are seen within the cervix. The examination is otherwise unremarkable.
== END 2023-01-12 15:32 | disposition home or self-care (01) ==
LOC: HO.US 15:31
PROVIDERS: PCP Family Medicine; Visit Provider Obstetrics & Gynecology
DX: R93.89 Abnormal findings on diagnostic imaging of other specified body structures (principal)
CPT/HCPCS: 76830; 76856

== ENCOUNTER 2023-02-03 11:12 | Outpatient (REF) | payer OTHER, SELFPAY ==
[2023-02-03 16:15] LABS: CT PCR NOT DETECTED (Not Detect.); NG PCR NOT DETECTED (Not Detect.)
[2023-02-04 10:55] LABS: BV Int Neg Control Negative (Negative); BV Int Pos Control Positive (Positive)
== END 2023-02-03 11:13 | disposition home or self-care (01) ==
LOC: HO.LNP 11:12
PROVIDERS: PCP Family Medicine; Visit Provider Obstetrics & Gynecology
DX: N85.02 Endometrial intraepithelial neoplasia [EIN] (principal); N76.0 Acute vaginitis; R93.89 Abnormal findings on diagnostic imaging of other specified body structures; N93.9 Abnormal uterine and vaginal bleeding, unspecified
CPT/HCPCS: 0353U; 87480; 87510; 87660; 99212

== ENCOUNTER 2023-03-23 17:11 | Emergency (ER) | payer OTHER, SELFPAY | END 2023-03-23 18:38 | disposition left against medical advice (07) | PROVIDERS: Emergency Provider Emergency Medicine | DX: R10.9 Unspecified abdominal pain (principal) ==

== ENCOUNTER 2023-06-02 11:06 | Outpatient (REF) | payer OTHER, SELFPAY ==
[2023-06-02 14:50] LABS: Hematocrit 41.3 % (37.0-47.0); Hemoglobin 13.8 g/dl (12.0-16.0); Mean Corpuscular HGB Conc 33.4 g/dl (31.0-35.0); Mean Corpuscular Hemoglobin 31.1 pg (27.0-33.0); Mean Platelet Volume 10.7 fL (9.4-12.3); Platelet Count 320 X10*3/uL (160-400); Red Blood Count 4.44 X10*6/uL (4.20-5.50); Red Cell Distribution Width 13.3 % (11.0-16.0); White Blood Count 5.4 X10*3/uL (4.8-10.8)
[2023-06-02 15:03] LABS: Appearance Urine Clear; Color Urine Yellow; Glucose Urine UA Negative (Negative); Leukocyte Esterase Urine Negative (Negative); Nitrite Urine Negative (Negative); PH 5.5 (5.0-9.0); Urine Blood Negative (Negative); Urine Ketones Negative (Negative); Urine Protein Negative (Neg-Trace)
[2023-06-02 15:05] LABS: Alanine Aminotransferase 19 U/L (0-31); Albumin Level 4.2 g/dL (3.5-5.0); Alkaline Phosphatase 83 U/L (39-117); Anion Gap 12 (12-20); Aspartate Amino Transferase 20 U/L (5-31); Bilirubin Total 0.6 mg/dL (0.0-1.0); Blood Urea Nitrogen 9 mg/dL (9-16); Calcium 9.5 mg/dL (8.4-10.2); Carbon Dioxide 21 mmol/L (22-29); Chloride 109 mmol/L (96-108); Cholesterol 204 mg/dL (<200); Estimated Glomerular Filt Rate > 60; Glucose Fasting 102 mg/dL (60-99); HDL Cholesterol 84 mg/dL (>40); LDL Cholesterol Calculated 110 mg/dL (<100); Potassium 3.5 mmol/L (3.3-5.1); Sodium 138 mmol/L (135-145); Total Protein 7.5 g/dL (6.5-8.0); Triglycerides 54 mg/dL (<150)
[2023-06-02 15:27] LABS: HCG Quantitative < 2 mIU/mL; TSH reflex Free T4 0.92 uIU/mL (0.32-4.0)
[2023-06-03 08:03] LABS: Syphilis Screen Nonreactive (Nonreactive)
[2023-06-03 08:15] LABS: HBsAGNum1 0.23 S/CO (0.00-0.99); HIV AB/AG Nonreactive (Nonreactive); HIV Num 1 0.05 S/CO (0.00-0.99); Hepatitis B Surface Antigen Negative (Negative); ~HepC Num1 0.42 S/CO (0.00-0.79); ~Hepatitis C Antibody Nonreactive (Nonreactive)
[2023-06-04 02:49] LABS: Prolactin 9.2 ng/mL
== END 2023-06-02 11:07 | disposition home or self-care (01) ==
LOC: HO.WFDLDS 11:06
PROVIDERS: Obstetrics & Gynecology; Visit Provider Family Medicine
DX: Z00.00 Encounter for general adult medical examination without abnormal findings (principal); N76.0 Acute vaginitis; B96.89 Other specified bacterial agents as the cause of diseases classified elsewhere; N93.9 Abnormal uterine and vaginal bleeding, unspecified
CPT/HCPCS: 36415; 80053; 80061; 81003; 84146; 84443; 84702; 85027; 86780; 86803; 87340; 87389

== ENCOUNTER 2024-05-17 13:11 | Outpatient (AMB) | payer OTHER, SELFPAY ==
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
[2024-05-17 13:28] VITALS: BP 121/67; PULSE 97; RESP 16; TEMP 2.9; TEMP 37.3; O2SAT 99; BMI 33.9
== END 2024-05-17 13:53 | disposition home or self-care (01) ==
LOC: HO.HMGFM 13:11
PROVIDERS: PCP Family Medicine; Visit Provider Family Medicine
DX: Z00.00 Encounter for general adult medical examination without abnormal findings (principal); I10 Essential (primary) hypertension; F41.9 Anxiety disorder, unspecified; J45.909 Unspecified asthma, uncomplicated; M79.89 Other specified soft tissue disorders; Z11.3 Encounter for screening for infections with a predominantly sexual mode of transmission; Z12.31 Encounter for screening mammogram for malignant neoplasm of breast
CPT/HCPCS: 99214; 99396

== ENCOUNTER 2024-06-20 13:43 | Outpatient (REF) | payer OTHER, SELFPAY ==
[2024-06-20 18:14] LABS: Appearance Urine Turbid; Color Urine Dark Yellow; Glucose Urine UA Negative (Negative); Leukocyte Esterase Urine Negative (Negative); Nitrite Urine Negative (Negative); Specific Gravity - Urine 1.025 (1.005-1.025); Urine Blood Negative (Negative); Urine Ketones Negative (Negative); Urine Protein Negative (Neg-Trace)
[2024-06-20 18:54] LABS: TSH reflex Free T4 0.81 uIU/mL (0.32-4.0)
[2024-06-20 19:18] LABS: Creatinine Urine 279.63 mg/dL; Microalbum/Creatinine Ratio Ur 4.2 ug/mg cr (<30)
[2024-06-21 04:21] LABS: Syphilis Screen Nonreactive (Nonreactive)
[2024-06-21 04:48] LABS: HBS Num1 801.51 mIU/mL (0-7.99); HBc Num1 6.05 S/CO (0.00-0.79); HBsAGNum1 0.29 S/CO (0.00-0.99); HIV AB/AG Nonreactive (Nonreactive); HIV Num 1 0.06 S/CO (0.00-0.99); Hepatitis B Surface Antigen Negative (Negative); ~HepC Num1 0.18 S/CO (0.00-0.79); ~Hepatitis B Surface Antibody REACTIVE (Nonreactive); ~Hepatitis C Antibody Nonreactive (Nonreactive)
[2024-06-21 05:25] LABS: Estimated Average Glucose 103 mg/dL; Hemoglobin A1C 107.6975 umol/L; Hemoglobin A1c % 5.2 % (<6.0); Total Hemoglobin (HGBA1C) 3258.6624 umol/L
[2024-06-21 05:29] LABS: HBc Num2 5.88 S/CO; HBc Num3 5.88 S/CO; Hepatitis B Core Antibody Reactive (Nonreactive)
[2024-06-24 02:48] LABS: Levetiracetam Keppra 20.3 mcg/mL (6.0-46.0)
== END 2024-06-20 13:44 | disposition home or self-care (01) ==
LOC: HO.WFDLDS 13:43
PROVIDERS: Visit Provider Family Medicine
DX: Z00.00 Encounter for general adult medical examination without abnormal findings (principal); Z11.3 Encounter for screening for infections with a predominantly sexual mode of transmission; R73.01 Impaired fasting glucose; I10 Essential (primary) hypertension; G40.909 Epilepsy, unspecified, not intractable, without status epilepticus
CPT/HCPCS: 36415; 80177; 81003; 82043; 82570; 83036; 84443; 86704; 86706; 86780; 86803; 87340; 87389

== ENCOUNTER 2024-11-13 16:37 | Outpatient (AMB) | payer OTHER, SELFPAY ==
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
[2024-11-13 16:46] VITALS: BP 110/62; PULSE 77; RESP 16; TEMP 37.1; O2SAT 98; BMI 34.8
--- OUTSIDE RECORDS SUMMARY | 2024-11-13 20:16 | XMS_ITS ---
Author Name [facility] Organization Unknown Results Test Name/Text Value Interpretation Date Range Source NEISSERIA GONORRHOEAE RIBOSOMAL RNA Negative Normal [id number] - [facility] JACY GLABRATA RNA Negative Normal [id number] - [facility] JACY SPECIES RNA Negative Normal [id number] - [facility] BACTERIAL VAGINOSIS RNA Positive Abnormal [id number] - [facility] TRICHOMONAS VAGINALIS RNA Negative Normal [id number] - [facility] CHLAMYDIA TRACHOMATIS, NAAT Negative Normal [id number] - [facility] HIV 1+2 AB + HIV1 P24 AG (PRESENCE) IN SERUM BY IMMUNOASSAY Negative Normal [id number] - [facility] HIV HOLD SPECIMEN LAV Normal [id number] [facility] GLUCOSE QUAL Negative Normal [id number] - [facility] COLOR OF URINE Yellow Normal [id number] - [facility] BILIRUBIN, URINE Negative Normal [id number] - [facility] CLARITY OF URINE Clear Normal [id number] - [facility] PROTEIN QUAL Negative Normal [id number] - [facility] LEUKOCYTE ESTERASE Negative Normal [id number] - [facility] PH OF URINE 5.5 Normal [id number] 5 - 8 [facility] KETONES URINE Negative Normal [id number] - [facility] HEMOGLOBIN, URINE Negative Normal [id number] - [facility] UROBILINOGEN, URINE 1EU/dL Normal [id number] 0.2 - 1 [facility] NITRITE Negative Normal [id number] - [facility] SPECIFIC GRAVITY 1.02 Normal [id number] - [facility] INFLUENZA B PCR (CEPHEID) Not Detected Normal [id number] [facility] INFLUENZA A PCR (CEPHEID) Not Detected Normal [id number] [facility] RSV PCR (CEPHEID) Not Detected Normal [id number] [facility] SARS-COV-2 PCR (CEPHEID) Negative Normal [id number] [facility] RBC DISTRIBUTION WIDTH 13.4% Normal [id number] 11.6 - 14.8 [facility] AUTO NRBC % 0% Normal 0 - [address] [facility] [address] 3.710*3/uL Normal [id number] 1.4 - 6.[address] [facility] [address] 0.510*3/uL Normal 0.2 - 0.8 [facility] MCHC 32.6g/dL Normal 32 - 36 [facility] MCH 31.5pg Normal 26 - 34 [facility] IMMATURE GRANULOCYTE % 0.5% Normal 0 - 0.6 [facility] EOSINOPHIL % 0.7% Normal 0 - [address] [facility] [address] 010*3/uL Normal [id number] 0 - 0. 2 [facility] MCV 96.8fL Normal 80 - 100 [facility] PLATELET COUNT 74873*3/uL Normal [id number] 150 - 440 [facility] BASOPHILS % 0.5% Normal 0 - [address] [facility] [address] 1.410*3/uL Normal 0.7 - 4.[address] [facility] [address] 010*3/uL Normal 0 - 0.3 [facility] HEMATOCRIT 39.3% Normal 35 - 47 [facility] WHITE CELL COUNT 5.610*3/uL Normal 3.6 - 11 [facility] RED CELL COUNT 4.0610*6/???L Normal [id number] 3.8 - 5. 2 [facility] MONOCYTE % 8.7% Normal 4 - 12 [facility] NEUTROPHIL % 65.2% Normal 40 - 70 [facility] HEMOGLOBIN 12.8g/dL Normal 12 - 16 [facility] LYMPHOCYTE % 24.4% Normal 20 - 50 [facility] CREATININE 0.8mg/dL Normal 0.6 - 1.2 [facility] POTASSIUM 3.9mmol/L Normal 3.6 - 5.1 [facility] BICARBONATE 22mmol/L Below low normal [id number] 23 - 32 [facility] GLOMERULAR FILTRATION RATE ML/MIN/1.73 SQ M.PREDICTED 94mL/min/1.73m*2 Normal [id number] 60 - [facility] SODIUM 142mmol/L Normal [id number] 137 - 144 [facility] CHLORIDE 110mmol/L Normal [id number] 100 - 111 [facility] CALCIUM, TOTAL 9.3mg/dL Normal [id number] 8.4 - 10.2 [facility] UREA NITROGEN 10mg/dL Normal [id number] 8 - 24 [facility] ANION GAP 10mmol/L Normal [id number] 3 - 11 [facility] GLUCOSE 98mg/dL Normal [id number] 70 - 200 [facility] MAGNESIUM 2mg/dL Normal [id number] 1.8 - 3 [facility] INFLUENZA B PCR (CEPX2 BiosystemsID) Not Detected Normal [id number] [facility] INFLUENZA A PCR (CEPX2 BiosystemsID) Not Detected Normal [id number] [facility] RSV PCR (CEPHEID) Not Detected Normal [id number] [facility] SARS-COV-2 PCR (CEPHEID) Negative Normal [id number] [facility] History of Medication Use Medication Directions Dispensed Refills Start Date End Date Stat fluticasone (FLOVENT DISKUS) 50 mcg/actuation diskus inhaler Inhale 1 puff 2 (two) times a day. Rinse mouth with water after use to reduce aftertaste and incidence of candidiasis. Do not swallow. Prime before first use and when the inhaler has not been used for > 5 days by releasing 4 test sprays into the air, away from the face, shaking well before each spra active levETIRAcetam (KEPPRA) 750 mg tablet Take 750 mg by mouth 2 (two) times a day. active
--- OUTSIDE RECORDS SUMMARY | 2024-11-13 20:16 | XMS_ITS | Clinical Summary ---
Author Organization [facility] Address [address] [place] [address] Care Team Providers Care Regulatory Compliance Engineer Name Role Phone Oral Aguilar Primary Care Provider [phone] Oral Aguilar Unavailable Allergies Active Allergy Reactions Criticality Noted Date Comments Sulfamethoxazole-Trimethoprim 2017 Swelling/hives/fever Lamotrigine Rash Low Medications levETIRAcetam (KEPPRA) 750 mg tablet Take 750 mg by mouth 2 (two) times a day. Active fluticasone (FLOVENT DISKUS) 50 mcg/actuation diskus inhaler Inhale 1 puff 2 (two) times a day. Rinse mouth with water after use to reduce aftertaste and incidence of candidiasis. Do not swallow. Prime before first use and when the inhaler has not been used for > 5 days by releasing 4 test sprays into the air, away from the face, shaking well before each spray. The canister should not be removed from the actuator because the correct amount of medication may not be discharged; the dose counter may not function properly; reinsertion may cause the dose counter to count down by 1 and discharge a puff. Active albuterol HFA 90 mcg/actuation inhaler Inhale 2 puffs every 6 hours as needed. Active amLODIPine (NORVASC) 10 mg tablet TAKE 1 TAB ORALLY DAILY FOR 90 DAYS Active albuterol HFA 90 mcg/actuation inhaler Inhale 2 puffs every 4 (four) hours as needed for wheezing. 18 each 4 Active Social History Tobacco Use Types Packs/Day Years Used Date Smoking Tobacco: Never Smokeless Tobacco: Never Alcohol Use Standard Drinks/Week Comments No 0 (1 standard drink = 0.6 oz pur e alcohol) Comments No Sex and Gender Information Value Date Recorded Sex Assigned at Not on file Legal Sex Female 6:14 AM EST Gender Identity Not on file Sexual Orientation Not on file Last Filed Vital Signs Vital Sign Reading Time Taken Comments Blood Pressure 127/95 05/23/2024 2:27 AM EDT Pulse 71 05/23/2024 2:27 AM EDT Temperature 36.8 ??C (98.2 ??F) 05/23/2024 2:27 AM ED T Respiratory Rate 15 05/23/2024 2:27 AM EDT Oxygen Saturation 99% 05/23/2024 2:27 AM EDT Inhaled Oxygen Concentration - - Weight 72.6 kg (160 lb) 05/23/2024 12:00 AM EDT Height 154.9 cm (5' 1 ) 05/23/2024 12:00 AM EDT Body Mass Index 30.23 05/23/2024 12:00 AM EDT Plan of Treatment Health Maintenance Due Date Last Done Comments Breast Cancer Screening 1979 CT Colonography 1979 Colonoscopy 1979 Colorectal Cancer Screening 1979 FIT-DNA (Cologuard) 1979 FIT 1979 FOBT 1979 Flex Sigmoidoscopy - 5y 1979 Hepatitis B Vaccines (2 of 3 - 3-dose series) 1979 1979 DTaP,Tdap,and Td Vaccines (1 - Tdap) 1997 Hepatitis C Screening 1997 Pap Smear 2000 Cervical Cancer Screening 2009 HPV/Cotest 2009 Pneumococcal Vaccine: Pediat rics (0 to 5 Years) and At-Risk Patients (6 to 64 Years) (2 of 2 - PCV) 05/24/2019 05/24/2018 COVID-19 Vaccine ( - 2023-2 5 season) 2024 Influenza Vaccine (#1) 2024 Zoster Vaccines (1 of 2) 2029 MMR Vaccines Aged Out 1979 No longer eligi ble based on patient's age to complete this topic HIV Screening Completed 03/19/2024 HPV Vaccines Aged Out No longer eligi ble based on patient's age to complete this topic Hepatitis A Vaccines Aged Out No long er eligible based on patient's age to complete this topic Meningococcal Vaccine Aged Out No vishal billy eligible based on patient's age to complete this topic Procedures Procedure Name Priority Date/Time Associated Diagnosis Comments HIV COMBO ANTIGEN/ANTIBODY Routine 03/19/2024 9:53 PM EDT from Last 3 Months or Most Recently Relevant to Health Maintenance Results * HIV combo antigen/antibody (03/19/2024 9:53 PM EDT) HIV Combo AB/AG Negative Negative 03/19/2024 10:53 PM EDT [facility] Blood Venous blood specimen / Unknown Venipuncture / Unknown 03/19/2024 9:53 PM EDT 03/19/2024 10:08 PM EDT Narrative [facility] - 03/19/2024 10:53 PM EDT This test is a 4th generation HIV Antigen-Antibody Combination assay, using a chemiluminescent microparticle immunoassay, for the simultaneous qualitative detection of human immuno- deficiency virus (HIV) p24 antigen and antibodies to HIV type 1 (HIV-1) and/or HIV type 2 (HIV-2) in human serum or plasma. The flatev HIV Ag/Ab Combo assay is intended to be used as an aid in the diagnosis of HIV-1 and/or HIV-2 infection, including acute or primary HIV-1 infection. Initially-positive tests are repeated in duplicate. Repeat-positive tests will be confirmed for HIV by a HIV-1/HIV-2 rapid supplemental/ differentiation antibody assay. This testing algorithm is in line with the current CDC recommendations. us Catie Bliss MD LAB BLOOD ORDERABLES NO STAT Fin al Result [facility] [address] [place] [address], [place] [phone] from Last 3 Months or Most Recently Relevant to Health Maintenance Insurance MEDICAID OUT OF STATE Care Teams Regulatory Compliance Engineer Relationship Specialty Start Date End Date Oral Aguilar [address] [place] [address] PCP - General 05/16/23 Oral Aguilar [address] [facility] [place] [place] [address] PCP - Insurance Payer PCP 03/19/24
== END 2024-11-13 17:12 | disposition home or self-care (01) ==
PROVIDERS: PCP Family Medicine; Visit Provider Family Medicine
DX: R42 Dizziness and giddiness (principal); I10 Essential (primary) hypertension; G40.909 Epilepsy, unspecified, not intractable, without status epilepticus; M25.519 Pain in unspecified shoulder; B37.2 Candidiasis of skin and nail

== ENCOUNTER → 2024-11-13 16:37 | Outpatient (BNVA) | payer OTHER, SELFPAY | PROVIDERS: PCP Family Medicine; Visit Provider Family Medicine | DX: R42 Dizziness and giddiness (principal); I10 Essential (primary) hypertension; G40.909 Epilepsy, unspecified, not intractable, without status epilepticus; B37.2 Candidiasis of skin and nail; M25.511 Pain in right shoulder | CPT/HCPCS: 96127; 99212 ==

== ENCOUNTER 2024-11-16 13:59 | Outpatient (REF) | payer OTHER, SELFPAY ==
--- OUTSIDE RECORDS SUMMARY | 2024-11-16 16:30 | XMS_ITS | Clinical Summary ---
Author Organization [facility] Address [address] [place] [address] Care Team Providers Care Winding Inspector And Tester Name Role Phone Oral Aguilar Primary Care [...] AB/AG Negative Negative 03/19/2024 10:53 PM EDT [facility] Blood Venous blood specimen / Unknown Venipuncture / Unknown 03/19/2024 9:53 PM EDT 03/19/2024 10:08 PM EDT Narrative [facility] - 03/19/2024 10:53 PM EDT This test is a 4th generation HIV Antigen-Antibody Combination assay, using a chemiluminescent microparticle immunoassay, for the simultaneous qualitative detection of human immuno- deficiency virus (HIV) p24 antigen and antibodies to HIV type 1 (HIV-1) and/or HIV type 2 (HIV-2) in human serum or plasma. The [employer] HIV Ag/Ab Combo assay is intended to [...] BLOOD ORDERABLES NO STAT Fin al Result [facility] [address] [place] [address], [place] [phone] from Last 3 Months or Most Recently Relevant to Health Maintenance Insurance MEDICAID OUT OF STATE Care Teams Winding Inspector And Tester Relationship Specialty Start Date End Date Oral Aguilar [address] [place] [address] PCP - General 05/16/23 Oral Aguilar [address] [facility] [place] [address] PCP - Insurance Payer PCP 03/19/24
[2024-11-16 17:36] LABS: Appearance Urine Clear; Color Urine Yellow; Glucose Urine UA Negative (Negative); Leukocyte Esterase Urine Negative (Negative); Nitrite Urine Negative (Negative); Specific Gravity - Urine 1.025 (1.005-1.025); Urine Blood Negative (Negative); Urine Ketones Trace mg/dL (Negative); Urine Protein Negative (Neg-Trace)
[2024-11-17 13:21] LABS: Bacterial Vaginosis PCR POSITIVE (Negative); Candida Group PCR DETECTED (Not Detect); Candida glab krusei PCR NOT DETECTED (Not Detect); Trichomonas vaginalis PCR NOT DETECTED (Not Detect)
== END 2024-11-16 14:00 | disposition home or self-care (01) ==
LOC: HO.LAB 13:59
PROVIDERS: PCP Family Medicine; Visit Provider Nurse Practitioner Family
DX: N76.0 Acute vaginitis (principal)
CPT/HCPCS: 81003; 81515; 99212

== ENCOUNTER 2024-11-16 13:59 | Outpatient (AMB) | payer OTHER, SELFPAY ==
--- NOTE | 2024-11-16 14:02 | A.OFFVIS_ITS ---
Vital Signs 11/16/24 14:13 Height 5 ft 1 in Weight 186 lb BMI 35.1 BP 135/78 Blood Pressure Location Rt brachial Position Sitting Respiration 16 Pulse 88 Pulse Source Pulse Oximeter Temp 98.2 F Temp Source Oral Pulse Oximetry (%) 100 Oxygen Delivery Method Room Air Intake Visit Reasons: Bactria in the urine possible uti Intake Note: patient c/o having yeast and itching and a slight order she thinks its BV Box Toe Buffer Required: No Allergies Sulfa (Sulfonamide Antibiotics) [SULFA (SULFONAMIDE ANTIBIOTICS)] Allergy (Intermediate, Verified 11/16/24 14:33) HIVES sulfamethoxazole [From BACTRIM] Allergy (Intermediate, Verified 11/16/24 14:33) HIVES, FEVER trimethoprim [From BACTRIM] Allergy (Intermediate, Verified 11/16/24 14:33) HIVES, FEVER penicillin V Allergy (Unknown, Verified 11/16/24 14:33) Unknown lisinopril Adverse Reaction (Verified 11/16/24 14:33) cough Sulfamethoxazole Allergy (Unknown, Uncoded 11/16/24 14:33) Unknown Is last menstrual period known: Yes Last menstrual period: 11/01/24 Post menopausal: No Patient : No Do you need a note to return to daycare/school/sports/work: No HPI Comments Details: 44-year-old female presents with complaints of vaginal itching/dryness, odor, clear-white discharge. She notes that the odor is non-fishy. Her symptoms 4 days ago after having sexual intercourse with her boyfriend. She took monistat x 1 three days ago with significant improvement of the itching, she currently experiences mild itching. Denies burning, pain, hematuria, or discharge with urination. She notes that she is sexually active, in a monogamous relationship, practices unprotected sex, and has not concern for STDs. She requests STD testing. [facility] Medical History (Updated 11/16/24 @ 14:47 by Mac Duran CNP) Endometrial intraepithelial neoplasia (EIN) Irritable bowel syndrome with constipation Vertigo HTN (hypertension) Seizure Asthma Surgical History No history of previous surgery Social History (Updated 05/17/24 @ 13:28 by JOSEPH Huizar) Housing: Apartment Alcohol intake: never Patient Tobacco Use Status: Never used Tobacco e-Cigarette/Vaping Use: Never Used Patient : No service: No Current occupational status: disabled Current occupational exposures/hazards: No Gender identity: Female Cognitive needs: No Hearing needs: No Vision needs: No Female Reproductive History Menstrual Age of Menarche: 10 Date of last menstrual period: 11/01/24 Review of Systems Const Details: Const Denies chills, Denies fatigue, Denies fever(s), Denies headache(s) and Denies weakness ENT Denies dizziness and Denies headache(s) Card Denies chest pain, Denies lightheadedness, Denies dyspnea and Denies other (Palpitations) Resp Denies cough, Denies dyspnea, Denies wheezing and Denies other ( shortness of breath) GI Denies abdominal pain, Denies melena, Denies hematochezia, Denies change in bowel habits, Denies dyspepsia and Denies nausea Reports as per HPI Musc Denies abnormal gait, Denies myalgias, Denies arthralgias, Denies numbness and Denies tingling Skin/Breast Denies rash, Denies unusual bruising and Denies wounds Neuro Denies abnormal gait, Denies dizziness, Denies headache(s), Denies memory loss, Denies numbness, Denies Sensory deficit (Neuro), Denies tingling and Denies weakness Psych Denies anxiety, Denies depression, Denies memory loss Endo Denies cold intolerance, Denies fatigue, Denies heat intolerance, Denies polydipsia and Denies polyuria Aller/Immun Denies wheezing Physical Exam Vital Signs: Last Vital Signs Temp 98.2 F 11/16/24 14:13 Pulse 88 11/16/24 14:13 Resp 16 11/16/24 14:13 BP 135/78 11/16/24 14:13 Pulse Ox 100 11/16/24 14:13 Oxygen Delivery Method Room Air 11/16/24 14:13 BMI result Body Mass Index 35.1 Const Other: General: no acute distress and well developed Nutritional Appearance: well nourished Orientation/consciousness: patient oriented x3 HENMT Head: Yes normocephalic and Yes atraumatic Eyes General: appearance normal, both eyes and all related structures Pupils: Equal, round and reactive pupils present EOM: EOMs intact bilaterally Resp Effort & Inspection: normal respiratory effort Auscultation: clear to auscultation bilaterally Cardio Rate: regular rate Rhythm: regular rhythm Heart sounds: S1 normal heart sound present, S2 normal heart sound present, no gallops, no murmurs and no rubs GI Palpation (GI): No Abdominal aortic bruit present, Soft to palpation, nontender, No hepatosplenomegaly present and No Rebound tenderness present Auscultation: normal bowel sounds General: Yes no CVA tenderness Back/Spine/Pelvis Back: no CVA tenderness Cervical Spine: cervical ROM normal and No Cervical spine tenderness Thoracic/Lumbar Spine: thoraco-lumbar ROM normal, No pain with thoraco-lumbar ROM, No thoracic spinal tenderness and No lumbar spinal tenderness Extrem General: Yes normal to inspection, No edema and No calf tenderness Skin General: warm and dry. Normal skin color. Normal skin turgor Neuro General: patient oriented x3, gait normal and no focal neuro deficit Cranial nerves: Yes Equal, round and reactive pupils present Cognition (Neuro): normal cognition Gait exam (Neuro): Normal gait present Sensory Exam: No Sensory deficit (Neuro) Psych Appearance: grossly normal Affect: normal affect Attitude: cooperative Thought process: Normal thought process present Assessment & Plan Assessment & Plan (1) Vaginal infection: Code(s): N76.0 - Acute vaginitis Category: Medical Plan: Patient presents with vaginal itching/dryness, non fishy odor, and clear-white discharge that started 4 days ago after having unprotected sexual intercourse with her boyfriend. She took Monistat x1 a day after her symptoms started and the vaginal itching significantly improved; she now has mild itching. The vaginal dryness, order, and clear-white discharge continues. She has no concerns for STDs but requests STD testing. Urine dip is negative for UTI. Her symptoms is likely related to vaginal candidiasis and therefore fluconazole was recommended. However, the patient strongly believes she has BV and requests metronidazole instead. Metronidazole 500 mg every 12 hours x7 days ordered; advised to take as prescribed. BP panel ordered. Will review results and make changes as needed. Labs ordered for STD screening. Genital hygiene instructed on instructed. Safe sexual practices encouraged. Follow-up with worsening or new symptoms. Verbalized understanding and agreed with treatment plan. Orders: Orders Bacterial Vaginosis Panel Today N76.0 - Acute vaginitis CT NG by PCR Today N76.0 - Acute vaginitis Syphilis Screen Today N76.0 - Acute vaginitis UA CC w/rflx Micro + Cult Today N76.0 - Acute vaginitis HIV Ab/Ag Today N76.0 - Acute vaginitis Hepatitis B,C Profile Today N76.0 - Acute vaginitis AMB Urinalysis Automated Today Z13.9 - Encounter for screening, unspecified Medications: New metronidazole 500 mg every 12 hours 500 mg PO BID 7 days 14 tabs 0RF Coding Level of Care Code Est Pt Level 3 (17982) Diagnoses Vaginal infection N76.0
[2024-11-16 14:13] VITALS: BP 135/78; PULSE 88; RESP 16; TEMP 36.8; O2SAT 100; BMI 35.1
--- OUTSIDE RECORDS SUMMARY | 2024-11-16 15:39 | XMS_ITS | Clinical Summary ---
Author Organization [facility] Address [address] [place] [address] Care Team Providers Care Tea And Spice Supervisor Name Role Phone Oral Aguilar Primary Care Provider Oral Aguilar Unavailable Allergies Active Allergy Reactions [...] AB/AG Negative Negative 03/19/2024 10:53 PM EDT [facility] Blood Venous blood specimen / Unknown Venipuncture / Unknown 03/19/2024 9:53 PM EDT 03/19/2024 10:08 PM EDT Narrative [facility] - 03/19/2024 10:53 PM EDT This test is a 4th generation HIV Antigen-Antibody Combination assay, using a chemiluminescent microparticle immunoassay, for the simultaneous qualitative detection of human immuno- deficiency virus (HIV) p24 antigen and antibodies to HIV type 1 (HIV-1) and/or HIV type 2 (HIV-2) in human serum or plasma. The [employer] HIV Ag/Ab Combo assay is intended to [...] BLOOD ORDERABLES NO STAT Fin al Result [facility] [address] [place] [address], [place] [phone] from Last 3 Months or Most Recently Relevant to Health Maintenance Insurance MEDICAID OUT OF STATE Care Teams Tea And Spice Supervisor Relationship Specialty Start Date End Date Oral Aguilar [address] [place] [address] PCP - General 05/16/23 Oral Aguilar [address] [facility] [place] [address] PCP - Insurance Payer PCP 03/19/24
== END 2024-11-16 16:04 | disposition home or self-care (01) ==
LOC: HO.HMCFM 13:59
PROVIDERS: PCP Family Medicine; Visit Provider Nurse Practitioner Family
DX: N76.0 Acute vaginitis (principal); Z13.9 Encounter for screening, unspecified

== ENCOUNTER 2024-11-22 12:09 | Outpatient (REF) | payer OTHER, SELFPAY ==
[2024-11-22 14:42] LABS: Estimated Average Glucose 103 mg/dL; Hemoglobin A1C 118.3763 umol/L; Hemoglobin A1c % 5.2 % (<6.0)
[2024-11-22 14:48] LABS: Alanine Aminotransferase 18 U/L (0-31); Albumin Level 3.8 g/dL (3.5-5.0); Alkaline Phosphatase 80 U/L (39-117); Anion Gap 9 (12-20); Aspartate Amino Transferase 24 U/L (5-31); Bilirubin Total 0.6 mg/dL (0.0-1.0); Blood Urea Nitrogen 8 mg/dL (9-16); Calcium 8.7 mg/dL (8.4-10.2); Carbon Dioxide 21 mmol/L (22-29); Chloride 113 mmol/L (96-108); Cholesterol 172 mg/dL (<200); Estimated Glomerular Filt Rate > 60; Glucose Fasting 99 mg/dL (60-99); HDL Cholesterol 86 mg/dL (>40); LDL Cholesterol Calculated 77 mg/dL (<100); Potassium 3.9 mmol/L (3.3-5.1); Sodium 139 mmol/L (135-145); Total Protein 7.2 g/dL (6.5-8.0); Triglycerides 46 mg/dL (<150)
--- OUTSIDE RECORDS SUMMARY | 2024-11-22 15:36 | XMS_ITS | Data Portability ---
Author Organization [place] [facility] Address [address] [place] [address] Care Team Providers Care Seasoner Hand Name Role Phone KATHLEEN MCCARTHY Primary Care Provider Assessment Encounter Date Assessment Date Assessment LastModified by Organization Details LastModified Time 09/08/2018 09/08/2018 Overview/Histor y: 38-year-old female who is new to a [facility], with a past medical history of seizure disorder, hypertension and vertigo, was evaluated for right ear pain over the past week. She has been experiencing ringing to the ear, pain and pressure. Today the pain was severe, although it did improve after taking some Advil. She recently completed a prednisone taper after being treated for asthma exacerbation and bronchitis. Exam: Right ear with Erythema, opacity behind TM and bulging. Afebrile. DDx considered, but not limited to: OM. Viral illness Work up/Results: Plan/Discussion : Patient's exam is consistent with a R OM. Patient will be started on amoxicillin 500 mg twice a day for 10 days. She was instructed to use ibuprofen 600 mg 3 times a day with food for discomfort. The patient states that she gets frequent vaginal yeast infections while taking antibiotics and was prescribed a prophylactic dose of Diflucan. She was also advised to use a probiotic while taking the antibiotic and to finish the full course. She is to call to be evaluated if she develops a fever, increasing pain or any other concerning symptoms. Otherwise, the patient will follow up with her PCP Time On Scene with Patient: 00:21:50 [email or web address] Not available 09/08/2018 20:43:16 Plan of Treatment Reminders Order Date Submit Date Provider Last Modified By Organization Details Last Modified Time Details Appointments None recorded. Lab None recorded. Referral None recorded. Procedures None recorded. Surgeries None recorded. Imaging None recorded. Medication Orders amoxicilli n 500 mg tablet 2017 018 [facility]FACE [id number], [address] [place], [address], 8 18:28:01 Diflucan 150 mg tablet 2017 018 [facility]FACE [id number], [address] [place], [address], 8 18:28:00 Patient TargetsNo targets recorded. Patient Instructions Encounter Date Encounter Id Patient Instructions Last Modified By Organization Details Last Modified Time 09/08/2018 [id number] Thank you for yo ur visit with [facility] today. We cannot always find the exact cause of your symptoms during your initial visit. Please follow up with your primary care provider or specialist within 12-24 hours within 24-48 hours to be rechecked or seek medical attention if your symptoms do not go away or get worse. If you develop any new or worsening symptoms and need after hours care, please go to nearest ER and/or call 911. If you have additional concerns or develop a change in your condition between 8am-10pm, please call [employer] at [phone] to help navigate your care. [email or web address] Not available 09/08/2018 18:28:14 Reason for Referral None Reported. Procedures Surgical History Date Name Laterality Status Provider Name and Address Organization Details Recorded Time laparotomy completed MAYO MATAMOROS NP [address], [place], [address], [place] - [facility] 09/08/2018 18:15:51 Imaging Results None recorded. Procedure Notes None recorded. Medical Equipment None Reported. Allergies Allergen ID Allergen Name Allergen Category Reaction Reaction Severity Criticality Documentation Date Start Date Code Code System Note Provider Name and Address Organization Details Recorded Time 57132 Bactrim medicatio n anaphylax is Not available Not available 09/08/2018 76180 9 RxNorm MAYO MATAMOROS NP [address] [place], [address], [place] [facility] 8 18:10:50 16336 lamotrigi ne medicatio n rash Not available Not available 09/08/2018 44966 RxNorm MAYO MATAMOROS NP [address] [place] [facility], [address], [place] - [facility] 8 18:11:10 Medications Name Sig Start Date Stop Date Status Note LastModified by Organization Details LastModified Time medroxyproges terone 10 mg tablet 09/08 completed Not Available Not Available Not Available clonidine HCl 0.1 mg tablet 09/08 completed Not Available Not Available Not Available prednisone 10 mg tablet 09/08 completed Not Available Not Available Not Available doxycycline hyclate 100 mg capsule 09/08 completed Not Available Not Available Not Available senna 8.6 mg tablet active Not Available Not Available Not Available ondansetron HCl 4 mg tablet 09/08 completed Not Available Not Available Not Available Diflucan 150 mg tablet Take 1 tablet as needed by oral route. 2017 active Not Available Not Available Not Avai lable amoxicillin 500 mg tablet Take 1 tablet twice a day by oral route. 2017 active Not Available Not Available Not Avai lable lorazepam 0.5 mg tablet 09/08 completed Not Available Not Available Not Available meclizine 25 mg tablet active Not Available Not Available No t Available benzonatate 100 mg capsule 09/08 completed Not Available Not Available Not Available docusate sodium 100 mg capsule active Not Available Not Available Not Available codeine 10 mg-guaifenesi n 100 mg/5 mL oral liquid 09/08 completed Not Available Not Available Not Available levetiracetam 750 mg tablet active Not Available Not Availabl e Not Available ibuprofen 600 mg tablet 09/08 completed Not Available Not Available Not Available aripiprazole 10 mg tablet 09/08 completed Not Available Not Available Not Available Flovent HFA 110 mcg/actuation aerosol inhaler active Not Available Not Available Not Available GaviLyte-N 420 gram oral solution 09/08 completed Not Available Not Available Not Available Vitals Date Recorded Body temperature Heart rate Respiratory rate Oxygen saturation Oxygen saturation in Arterial blood by Pulse oximetry Systolic blood pressure Diastolic blood pressure Provider Name and Address Organization Details Last Updated DateTime 8 99 [degF] 90 /min 12 /min 98 % 98 % 124 mm[Hg] 90 mm[Hg] Not Available [facility] 8 18:16:25 Social History Question Answer Notes LastModified by Organizat ion Details LastModified Time Tobacco Smoking Status Never Smoker MAYO MATAMOROS NP [address] [place], [address], [place] [facility] 09/08/2018 18:15:14 What Was The Date Of Your Most Recent Tobacco Screening? 09/08/2018 Information not available 04/05/2019 Sex: Unknown Functional Status None recorded. Mental Status None recorded. Family History Relationship Description Onset Age of this Age Resolved Age Notes LastModified by Organization Details LastModified Time Mother Seizure disorder [email or web address] Not available 09/08 18:14:31 Mother Chronic obstructive pulmonary disease [email or web address] Not available 09/08 18:15:07 Father Kidney disease [email or web address] Not available 09/08 18:14:52 Medical History Condition Response Diabetes N Coronary Artery Disease N Cancer N Stroke N Asthma Y COPD N Depression Y High Cholesterol N Pulmonary Embolism N Hypertension Y Kidney Disease N Gynecological HistoryNo gynecological history recorded. Obstetrics History GPAL:G 0 P 0 0 0 0 Past Encounters Encounter ID Performer Location Encounter Start Date Encounter Closed Date Diagnosis/Indication Diagnosis SNOMED-CT Code Diagnosis ICD10 Code Diagnosis Note [id number] MAYO MATAMOROS NP [facility] [address] [place] [address] 09/08/2018 18:05:46 09/08/2018 20:51:11 Acute otitis media 3663627 H66.91 Health Concerns Section Related Observation LastModified by Organization Detai ls LastModified Time None Recorded Concern Status LastModified by Organization Details LastModified Time None Recorded Advance Directives Directive None Recorded Payers Encounter Date Sequence Insurance Name Policy Number Policy Mcknight Covered Member ID Mcknight Member ID Guarantor Name 09/08/2018 1 [facility] Sarika Balbuena [id number] Sarika Balbuena 09/08/2018 2 [place] [facility] Sarika Balbuena [id number] Sarika Balbuena Notes Date Note Type Note Provider Name and Address Organization Details Recorded Time 09/08/2018 text/html 38-year-old femlatonya de la vega who is [facility] with a past medical history of seizure disorder, who was recently treated for bronchitis and an asthma exacerbation with steroids and antibiotics, called to be evaluated for right ear pain. She complains of pressure, tinnitus and discomfort to the right ear x 1 week. She reports that the pain was so severe today that she was crying. It improved after taking 400 mg of Advil. She denies any fever, chills, sweats: Headache, neck pain, sore throat, shortness of breath, chest pain, back pain, arthralgias or any rashes. MAYO MATAMOROS NP [address] [place] [address], [address], [place] - [facility] 09/08/2018 20:44:27 OBGyn Episode No OBEpisode recorded.
--- OUTSIDE RECORDS SUMMARY | 2024-11-22 15:36 | XMS_ITS | Clinical Summary ---
Author Organization [facility] Address [address] [place] [address] Care Team Providers Care Doctor Osteopathic Name Role Phone Oral Aguilar Primary Care Provider [phone] Oral Aguilar Unavailable Allergies Active Allergy Reactions [...] AB/AG Negative Negative 03/19/2024 10:53 PM EDT [facility] Blood Venous blood specimen / Unknown Venipuncture / Unknown 03/19/2024 9:53 PM EDT 03/19/2024 10:08 PM EDT Narrative [facility] - 03/19/2024 10:53 PM EDT This test is a 4th generation HIV Antigen-Antibody Combination assay, using a chemiluminescent microparticle immunoassay, for the simultaneous qualitative detection of human immuno- deficiency virus (HIV) p24 antigen and antibodies to HIV type 1 (HIV-1) and/or HIV type 2 (HIV-2) in human serum or plasma. The [employer] HIV Ag/Ab Combo assay is intended to [...] BLOOD ORDERABLES NO STAT Fin al Result [facility] [address] [place] [address], [place] [phone] from Last 3 Months or Most Recently Relevant to Health Maintenance Insurance MEDICAID OUT OF STATE Care Teams Doctor Osteopathic Relationship Specialty Start Date End Date Oral Aguilar [address] [place] [address] PCP - General 05/16/23 Oral Aguilar [address] [facility] [place] [address] PCP - Insurance Payer PCP 03/19/24
[2024-11-22 16:32] LABS: CT PCR NOT DETECTED (Not Detect.); NG PCR NOT DETECTED (Not Detect.)
[2024-11-23 03:53] LABS: Syphilis Screen Nonreactive (Nonreactive)
[2024-11-23 04:17] LABS: HBsAGNum1 0.25 S/CO (0.00-0.99); HIV AB/AG Nonreactive (Nonreactive); HIV Num 1 0.09 S/CO (0.00-0.99); Hepatitis B Surface Antigen Negative (Negative); ~HepC Num1 0.21 S/CO (0.00-0.79); ~Hepatitis B Surface Antibody REACTIVE (Nonreactive); ~Hepatitis C Antibody Nonreactive (Nonreactive)
[2024-11-23 05:21] LABS: HBc Num2 8.13 S/CO; Hepatitis B Core Antibody Reactive (Nonreactive)
== END 2024-11-22 12:10 | disposition home or self-care (01) ==
LOC: HO.WFDLDS 12:09
PROVIDERS: Referring Provider Nurse Practitioner Family; Visit Provider Family Medicine
DX: Z00.00 Encounter for general adult medical examination without abnormal findings (principal); R73.01 Impaired fasting glucose; N76.0 Acute vaginitis
CPT/HCPCS: 36415; 80053; 80061; 83036; 86704; 86706; 86780; 86803; 87340; 87389; 87491; 87591

== ENCOUNTER 2025-06-27 11:19 | Outpatient (REF) | payer OTHER, SELFPAY ==
[2025-06-27 15:07] LABS: Alanine Aminotransferase 19 U/L (0-31); Albumin Level 3.9 g/dL (3.5-5.0); Alkaline Phosphatase 86 U/L (39-117); Anion Gap 11 (12-20); Aspartate Amino Transferase 32 U/L (5-31); Blood Urea Nitrogen 10 mg/dL (9-16); Calcium 9.2 mg/dL (8.4-10.2); Carbon Dioxide 24 mmol/L (22-29); Chloride 110 mmol/L (96-108); Estimated Glomerular Filt Rate > 60; Potassium 3.8 mmol/L (3.3-5.1); Sodium 141 mmol/L (135-145); Total Protein 7.2 g/dL (6.5-8.0)
== END 2025-06-27 11:20 | disposition home or self-care (01) ==
LOC: HO.WFDLDS 11:19
PROVIDERS: PCP Family Medicine; Visit Provider Nurse Practitioner Family
DX: I88.0 Nonspecific mesenteric lymphadenitis (principal); E66.9 Obesity, unspecified; J45.909 Unspecified asthma, uncomplicated; R10.12 Left upper quadrant pain; Z09 Encounter for follow-up examination after completed treatment for conditions other than malignant neoplasm; Z68.34 Body mass index [BMI] 34.0-34.9, adult
CPT/HCPCS: 36415; 80053; 87633; 96127; 99212

== ENCOUNTER 2025-06-27 11:19 | Outpatient (AMB) | payer OTHER, SELFPAY ==
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
[2025-06-27 11:26] VITALS: BP 104/66; PULSE 72; RESP 12; TEMP 36.8; O2SAT 99; BMI 34.6
--- OUTSIDE RECORDS SUMMARY | 2025-06-27 14:36 | XMS_ITS | Clinical Summary ---
Author Organization [facility] Address [address] [address] Phone Care Team Providers Care Network Support Administrator Name Role Phone Oral Aguilar MD Primary Care Provider Allergies Active Allergy Reactions Criticality Noted Date Comments Amoxicillin Unknown 03/31/2022 Sulfamethoxazole-Trimethopri m Unknown 03/31/2022 Lamotrigine Rash High 12/21/2022 Sulfa (Sulfonamide Antibiotics) Unknown 03/31/2022 Other reaction(s): fever, hives Other reaction(s): fever, hives Medications levETIRAcetam (KEPPRA) 750 MG tablet Take by mouth 2 (two) times a day. Active amLODIPine (NORVASC) 10 MG tablet Take 10 mg by mouth daily. Active albuterol 90 mcg/actuation inhaler Inhale 2 puffs into the lungs every 6 (six) hours as needed for wheezing. Active ibuprofen (ADVIL,MOTRIN) 800 MG tablet Take 1 tablet (800 mg total) by mouth every 8 (eight) hours as needed for pain (specific location in comments). 20 tablet 3 Active albuterol 90 mcg/actuation inhaler Inhale 2 puffs into the lungs every 6 (six) hours as needed for wheezing. 18 g 4 Active clotrimazole (LOTRIMIN) 1 % cream Apply topically 2 (two) times a day. For 2 weeks 30 g 4 Active Active Problems No known active problems Immunizations Immunization Administration Dates Next Due Hepatitis B, unspecified formulation 1979 MMR 1979 Pneumococcal polysaccharide PPSV23 05/24/2018 Social History Tobacco Use Types Packs/Day Years Used Date Smoking Tobacco: Never Smokeless Tobacco: Never Tobacco Cessation:Counseling Given: Not Answered Alcohol Use Standard Drinks/Week Comments Yes 0 (1 standard drink = 0.6 oz pur e alcohol) Education Answer Date Recorded Are you interested in more education? Not on tatyana e 01/08/2023 Are you concerned about learning? Not on file 01/08/2023 No 01/08/2023 No 01/08/2023 Food Answer Date Recorded Within the past 6 months we worried whether our food would run out before we got money to buy more. Never True 12/31/2024 Within the past 6 months the food we bought just didn't last and we didn't have enough money to get more. Never True Residential Stability Answer Date Recor ded What is your housing situation today? I have marco a sing 12/31/2024 How many times have you move d in the past 12 months? Zero (I did not move) 12/31/2024 Paying for Meds Answer Date Recorded Do you have trouble paying for medicines? No 12/31/2024 Paying Utility Bills Answer Date Record ed Do you have trouble paying your heating or elect ricity bill? No 12/31/2024 Transportation Answer Date Recorded Has the lack of transportati on kept you from medical appointments or from getting medications? No 12/31/2024 Digital Access Answer Date Recorded No 12/31/2024 Yes 12/31/2024 Do you have reliable internet access at home? Ye s 12/31/2024 Do you have a device (e.g., phone, tablet, computer) with a working camera? Yes 12/31/2024 Intimate Partner Violence Answer Date R ecorded Are you denied basic needs s uch as food, clothing, or medical care? No 12/31/2024 In the past 12 months have y ou been in a relationship with a person who hurts, threatens, or tries to control you? No 12/31/2024 Are you denied basic needs s uch as food, clothing, or medical care? No 12/31/2024 In the past 12 months have y ou been in a relationship with a person who hurts, threatens, or tries to control you? No 12/31/2024 Comments Unknown Sex and Gender Information Value Date Recorded Sex Assigned at Female 12/21/2022 4:52 PM EDT Legal Sex Female 3:41 AM EDT Gender Identity Female 12/21/2022 4:52 PM EDT Sexual Orientation Straight 12/21/2022 4: 52 PM EDT Last Filed Vital Signs Vital Sign Reading Time Taken Comments Blood Pressure 138/88 12/31/2024 8:01 PM EDT Pulse 63 12/31/2024 8:01 PM EDT Temperature 36.1 C (97 F) 12/31/2024 8:01 PM EDT Respiratory Rate 16 12/31/2024 8:01 PM EDT Oxygen Saturation 98% 12/31/2024 8:01 PM EDT Inhaled Oxygen Concentration - - Weight 74.8 kg (165 lb) 12/31/2024 6:07 PM EDT Height 154.9 cm (5' 1 ) 12/31/2024 6:07 PM EDT Body Mass Index 31.18 12/31/2024 6:07 PM EDT Plan of Treatment Health Maintenance Due Date Last Done Comments Adult Td,Tdap Booster 1979 LIPID PANEL 1979 DEPRESSION SCREENING 1991 HEPATITIS C SCREENING 1997 HIV ONE-TIME SCREENING (18-6 5 YEARS) 1997 PAP SMEAR 2000 SMOKING STATUS SCREENING (On ce After 26 Yrs) 2005 MAMMOGRAM 2019 COLOGUARD 2024 COLONOSCOPY 2024 COLORECTAL CANCER SCREENING 2024 FIT TEST 2024 FOBT 2024 SIGMOIDOSCOPY 2024 VIRTUAL COLONOSCOPY 2024 INFLUENZA VACCINE (#1) 2025 COVID-19 VACCINE (2024-2 6 season) 2025 08/25/2021, 02/03/2021, 01/13/2021 SCREENING FOR DIABETES 03/23/2026 03/23/2023 PNEUMOCOCCAL VACCINES (0-49 years) Aged Out 05/24/2018 No longer eligible b ased on patient's age to complete this topic HEPATITIS A VACCINES Aged Out No long er eligible based on patient's age to complete this topic HIB VACCINES Aged Out No longer eligi ble based on patient's age to complete this topic MENINGOCOCCAL VACCINES (ACWY) Aged Out No longer eligible based on patient's age to complete this topic MENINGOCOCCAL VACCINES (B) Aged Out N o longer eligible based on patient's age to complete this topic Medical Devices Not on file Insurance [facility] [place] [place] [address] [place] [address] [place] [address] [address] [place] [address] [place] [address] ACO Care Teams Network Support Administrator Relationship Specialty Start Date End Date Oral Aguilar MD [address] [place] [address] PCP - General Family Medicine 12/21/22 Additional Source Comments The information contained in this document represents components of the legal health record. It is not the complete legal health record.[facility]
--- OUTSIDE RECORDS SUMMARY | 2025-06-27 14:36 | XMS_ITS | Clinical Summary ---
Author Organization [facility] Address [address] [place] [address] Care Team Providers Care Concert Manager Name Role Phone Oral Aguilar Primary Care Provider [phone] Oral Aguilar Unavailable Allergies Active Allergy Reactions [...] 71 05/23/2024 2:27 AM EDT Temperature 36.8 C (98.2 F) 05/23/2024 2:27 AM EDT Respiratory Rate 15 05/23/2024 2:27 AM EDT [...] Hepatitis C Screening 1997 Pap Smear 2000 HPV Vaccines (1 - 3-dose SCD M series) 2006 Cervical Cancer Screening 2009 HPV/Cotest 2009 Pneumococcal Vaccine: Pediat rics (0 to 5 Years) and At-Risk Patients (6 to 49 Years) (2 of 2 - PCV) 05/24/2019 05/24/2018 COVID-19 Vaccine (1 - 2023-2 5 season) 2025 Influenza Vaccine (#1) 2025 Zoster Vaccines (1 of 2) 2029 MMR Vaccines Aged Out 1979 No longer eligi ble based on patient's age to complete this topic HIV Screening Completed 03/19/2024 Hepatitis A Vaccines Aged Out No long [...] AB/AG Negative Negative 03/19/2024 10:53 PM EDT [facility] Blood Venous blood specimen / Unknown Venipuncture / Unknown 03/19/2024 9:53 PM EDT 03/19/2024 10:08 PM EDT Narrative [facility] - 03/19/2024 10:53 PM EDT This test is a 4th generation HIV Antigen-Antibody Combination assay, using a chemiluminescent microparticle immunoassay, for the simultaneous qualitative detection of human immuno- deficiency virus (HIV) p24 antigen and antibodies to HIV type 1 (HIV-1) and/or HIV type 2 (HIV-2) in human serum or plasma. The [employer] HIV Ag/Ab Combo assay is intended to [...] BLOOD ORDERABLES NO STAT Fin al Result [facility] [address] [place] [address], [place] [phone] from Last 3 Months or Most Recently Relevant to Health Maintenance Insurance MEDICAID OUT OF STATE [place] [id number] Care Teams Concert Manager Relationship Specialty Start Date End Date Oral Aguilar [address] [place] [address] PCP - General 05/16/23 Oral Aguilar [address] [place] [address] PCP - Insurance Payer PCP 03/19/24
--- OUTSIDE RECORDS SUMMARY | 2025-06-27 14:37 | XMS_ITS ---
Author Name [facility] Organization Unknown Results Test Name/Text Value Interpretation Date Range Source NEISSERIA GONORRHOEAE RIBOSO MAL RNA Negative Normal 03/20/2024 - [facility] CHLAMYDIA TRACHOMATIS, NAAT Negative Normal 03/20/2024 - [facility] JACY GLABRATA RNA Negative Normal 03/20/2024 - [facility] BACTERIAL VAGINOSIS RNA Positive Abnormal 03/20/2024 - [facility] JACY SPECIES RNA Negative Normal 03/20/2024 - [facility] TRICHOMONAS VAGINALIS RNA Negative Normal 03/20/2024 - [facility] HIV HOLD SPECIMEN LAV Normal 03/20/2024 [facility] HIV 1+2 AB + HIV1 P24 AG (PRESENCE) IN SERUM BY IMMUNOASSAY Negative Normal 03/20/2024 - [facility] GLUCOSE QUAL Negative Normal 03/20/2024 - [facility] UROBILINOGEN, URINE 1.0 EU/dL Normal 03/20/2024 0.2 - 1 [facility] LEUKOCYTE ESTERASE Negative Normal 03/20/2024 - [facility] BILIRUBIN, URINE Negative Normal 03/20/2024 - [facility] NITRITE Negative Normal 03/20/2024 - [facility] PH OF URINE 5.5 Normal 03/20/2024 5 - 8 [facility] PROTEIN QUAL Negative Normal 03/20/2024 - [facility] SPECIFIC GRAVITY 1.02 Normal 03/20/2024 - [facility] KETONES URINE Negative Normal 03/20/2024 - [facility] COLOR OF URINE Yellow Normal 03/20/2024 - [facility] HEMOGLOBIN, URINE Negative Normal 03/20/2024 - [facility] CLARITY OF URINE Clear Normal 03/20/2024 - [facility] INFLUENZA B PCR (CEPHEID) Not Detected Normal 03/20/2024 [facility] SARS-COV-2 PCR (CEPHEID) Negative Normal 03/20/2024 [facility] RSV PCR (CEPHEID) Not Detected Normal 03/20/2024 [facility] INFLUENZA A PCR (CEPHEID) Not Detected Normal 03/20/2024 [facility] History of Medication Use Medication Directions Dispensed Refills Start Date End Date Stat us fluticasone (FLOVENT DISKUS) 50 mcg/actuation diskus inhaler [...] mouth 2 (two) times a day. active Allergies Allergen Reaction Severity Comment Documented Date Source Statu s SULFAMETHOXAZOLE-TRIM ETHOPRIM Swelling/hives/f ever 08/29/2018 [facility] active LAMOTRIGINE RASH Mild [facility] active Encounters Encounter Type Encounter Reason Primary Diagnosis Location Date Emergency Acute bronchitis due to other specified Acute bronchitis due to other specified organisms [facility] 05/23/2024 Emergency Acute pharyngitis, unspecified Acute pharyngitis, unspecified [facility] 03/19/2024 Emergency Unspecified asthma w ith (acute) exacerba Unspecified asthma with (acute) exacerbation [facility] 05/16/2023 Emergency Unspecified asth ma with (acute) exacerbation [facility] 10/07/2022 Care Team Organization Name Specialty Phone Email Start Date End Da te [facility] CORDELL BROCK Primary Care 202205/16/2023 [facility] NO PCP Primary Care 10/07/2022 [facility] PCP,No Primary Care 10/07/2022
--- OUTSIDE RECORDS SUMMARY | 2025-06-27 14:37 | XMS_ITS | Data Portability ---
Author Organization [facility] Address [address] [place] [address] Care Team Providers Care Trashman Name Role Phone KATHLEEN MCCARTHY Primary Care Provider Assessment Encounter Date Assessment Date Assessment LastModified by Organization Details LastModified Time 09/08/2018 09/08/2018 Overview/Histor y: 38-year-old female who is new to a [facility], with a past medical history of seizure [...] tablet 2017 018 INTERFACE [id number], [address] [place], [address], 8 18:28:01 Diflucan 150 mg tablet 2017 018 INTERFACE [id number], [address] [place], [address], 8 18:28:00 Patient TargetsNo targets recorded. Patient Instructions Encounter Date Encounter Id Patient Instructions Last Modified By Organization Details Last Modified Time 09/08/2018 [id number] Thank you for yo ur visit with [facility] today. We cannot always find the exact cause of your symptoms during your initial visit. Please follow up with your primary care provider or specialist within 24-48 hours to be rechecked or seek medical attention if your symptoms do not go away or get worse. If you develop any new or worsening symptoms and need after hours care, please go to nearest ER and/or call 911. If you have additional concerns or develop a change in your condition between 8am-10pm, please call [facility] at [phone] to help navigate your care. [email or web address] Not available 09/08/2018 18:28:14 Reason for Referral None Reported. Procedures Surgical History Date Name Laterality Status Provider Name and Address Organization Details Recorded Time laparotomy completed MAYO MATAMOROS NP [address], [place], [address], [place] [facility] 09/08/2018 18:15:51 Imaging Results None recorded. Procedure Notes None recorded. Medical Equipment None Reported. Allergies Allergen ID Allergen Name Allergen Category Reaction Reaction Severity Criticality Documentation Date Start Date Code Code System Note Provider Name and Address Organization Details Recorded Time 37334 Bactrim medicatio n anaphylax is Not available Not available 09/08/2018 91096 9 RxNorm MAYO MATAMOROS NP [address] [place], [address], [place] [facility] 8 18:10:50 13846 lamotrigi ne medicatio n rash Not available Not available 09/08/2018 48487 RxNorm MAYO MATAMOROS NP [address] [place] [facility] [place], [address], [place] [facility] 8 18:11:10 [...] in Arterial blood by Pulse oximetry Systolic And Diastolic Provider Name and Address Organization Details Last Updated DateTime 8 99 [degF] 90 /min 12 /min 98 % 98 % 124/90 mm[Hg] Not Available [facility] 8 18:16:25 Social History Question Answer Notes LastModified by Organizat ion Details LastModified Time Tobacco Smoking Status Never Smoker MAYO MATAMOROS NP [address] [place], [address], [place] [facility] 09/08/2018 18:15:14 What Was The Date Of Your Most Recent Tobacco Screening? 09/08/2018 Information not available 04/05/2019 Sex: Unknown Functional Status None recorded. Mental Status None recorded. Family History Relationship Description Onset Age of this Age Resolved Age Notes LastModified by Organization Details LastModified Time Mother Seizure disorder [email or web address] Not available 09/08 18:14:31 Mother Chronic obstructive pulmonary disease [email or web address] Not available 09/08 18:15:07 Father Kidney disease [email or web address] Not available 09/08 18:14:52 Medical History Condition Response Diabetes N Coronary Artery Disease N Cancer N Stroke N COPD N Depression Y Asthma Y High Cholesterol N Pulmonary Embolism N Hypertension Y Kidney Disease N Gynecological HistoryNo gynecological history recorded. Obstetrics History GPAL:G 0 P 0 0 0 0 Past Encounters Encounter ID Performer Location Encounter Start Date Encounter Closed Date Diagnosis/Indication Diagnosis SNOMED-CT Code Diagnosis ICD10 Code Diagnosis IMO Codes Diagnosis Note [id number] MAYO MATAMOROS NP [facility] [address] [place] [address] 09/08/2018 18:05:46 09/08/2018 20:51:11 Acute otitis media 8197407 H66.91 Health Concerns Section Related Observation LastModified by Organization Detai ls LastModified Time None Recorded Concern Status LastModified by Organization Details LastModified Time None Recorded Advance Directives Directive None Recorded Payers Insurance Date Sequence Insurance Name Policy Number Policy Mcknight Covered Member ID Mcknight Member ID Guarantor Name 09/08/2018 1 [facility] Sarika Balbuena [id number] Sarika Balbuena 09/08/2018 1 *SELF PAY* Sarika Balbuena [id number] Sarika Balbuena 09/11/2018 1 [facility] Sarika Esha [id number] Sarikajody Balbuena 09/11/2018 2 [place] [facility] Sarika Balbuena [id number] Sarika Balbuena 09/11/2018 1 [employer] (MEDICAID HMO) Sarika Balbuena [id number] Sarika Nairnock Notes Date Note Type Note Provider Name and Address Organization Details Recorded Time 09/08/2018 text/html 38-year-old female who is new to [facility] with a past medical history [...] arthralgias or any rashes. MAYO MATAMOROS NP [address], [place], [address], [place] [facility] 09/08/2018 20:44:27 OBGyn Episode No OBEpisode recorded.
== END 2025-06-27 11:47 | disposition home or self-care (01) ==
LOC: HO.HMCFM 11:20
PROVIDERS: PCP Family Medicine; Visit Provider Nurse Practitioner Family
DX: R10.30 Lower abdominal pain, unspecified (principal); E66.9 Obesity, unspecified; Z68.34 Body mass index [BMI] 34.0-34.9, adult; I88.0 Nonspecific mesenteric lymphadenitis; Z09 Encounter for follow-up examination after completed treatment for conditions other than malignant neoplasm

== ENCOUNTER 2025-06-27 13:08 | Outpatient (REF) | payer OTHER, SELFPAY ==
[2025-06-28 14:30] LABS: Chlamydia pneumoniae PCR Not Detected (Not Detect.); Coronavirus 229E PCR Not Detected (Not Detect.); Coronavirus HKU1 PCR Not Detected (Not Detect.); Coronavirus NL63 PCR Not Detected (Not Detect.); Coronavirus OC43 PCR Not Detected (Not Detect.); RSV PCR Not Detected (Not Detect.); Rhino/Enterovirus PCR Not Detected (Not Detect.)
[2025-06-28 15:03] LABS: SARS-CoV-2 PCR Not Detected (Not Detect.)
[2025-06-28 15:04] LABS: Influenza A H1 PCR Not Detected (Not Detect.); Influenza A H1-2009 PCR Not Detected (Not Detect.); Influenza A H3 PCR Not Detected (Not Detect.)
== END 2025-06-27 13:09 | disposition home or self-care (01) ==
LOC: HO.LAB 13:08
PROVIDERS: Visit Provider Nurse Practitioner Family
DX: Z13.89 Encounter for screening for other disorder (principal)
CPT/HCPCS: 87633